=== PATIENT | female | born 1980 | race Asian ===

== ENCOUNTER 2020-06-20 10:04 | Outpatient (REF) | payer OTHER, SELFPAY ==
[2020-06-20 10:48] LABS: Glucose Urine UA NEG (NEG); Leukocyte Esterase Urine NEG (NEG); Nitrite Urine NEG (NEG); Urine Blood NEG (NEG); Urine Ketones NEG (NEG); Urine Protein NEG (NEG-TRACE)
[2020-06-20 10:49] LABS: Appearance Urine CLEAR; Color Urine YELLOW
[2020-06-20 10:58] LABS: Hematocrit 41.4 % (37-47); Hemoglobin 13.4 g/dl (12.0-16.0); Mean Corpuscular HGB Conc 32.4 g/dl (31.0-35.0); Mean Corpuscular Hemoglobin 29.1 pg (27.0-33.0); Mean Platelet Volume 10.8 fL (9.4-12.3); Platelet Count 307 X10*3/uL (160-400); Red Cell Distribution Width 12.7 % (11.0-16.0); White Blood Count 7.7 X10*3/uL (4.8-10.8)
[2020-06-20 11:20] LABS: Alanine Aminotransferase 12 U/L (0-31); Albumin Level 3.9 g/dL (3.5-5.0); Alkaline Phosphatase 70 U/L (39-117); Anion Gap 11 (12-20); Aspartate Amino Transferase 17 U/L (5-31); Bilirubin Direct < 0.2 mg/dL (0.0-0.5); Bilirubin Total 0.5 mg/dL (0.0-1.0); Blood Urea Nitrogen 12 mg/dL (9-16); Calcium 9.2 mg/dL (8.4-10.2); Carbon Dioxide 27 mmol/L (22-29); Chloride 105 mmol/L (96-108); Cholesterol 179 mg/dL; Estimated Glomerular Filt Rate > 60; Glucose Random 84 mg/dL (60-115); HDL Cholesterol 53 mg/dL; LDL Cholesterol Calculated 88 mg/dl; Potassium 4.5 mmol/L (3.3-5.1); Sodium 138 mmol/L (135-145); Total Protein 7.4 g/dL (6.5-8.0); Triglycerides 193 mg/dL
[2020-06-20 11:41] LABS: Thyroid Stimulating Hormone 0.51 uIU/mL (0.32-4.0)
[2020-06-24 16:12] LABS: Vitamin D 25-OH, D2 <4 ng/mL; Vitamin D 25-OH, D3 17 ng/mL; Vitamin D 25-OH, Total 17 ng/mL (30-100)
== END 2020-06-20 10:05 | disposition home or self-care (01) ==
LOC: HO.LAB 10:04
PROVIDERS: PCP Internal Medicine; Visit Provider Internal Medicine
DX: Z00.00 Encounter for general adult medical examination without abnormal findings (principal)
CPT/HCPCS: 36415; 80048; 80061; 80076; 81003; 82306; 84443; 85027

== ENCOUNTER 2021-07-20 09:25 | Outpatient (REF) | payer OTHER, SELFPAY ==
[2021-07-20 09:55] LABS: MANUAL DIFF FLAG NO
[2021-07-20 10:41] LABS: Basophils Absolute Auto 0.1 X10*3/uL (0.0-0.2); Basophils Percent Auto 0.6 % (0-2); Eosinophils Absolute Auto 0.2 X10*3/uL (0.0-0.4); Eosinophils Percent Auto 2.9 % (0-4); Hematocrit 41.9 % (37.0-47.0); Hemoglobin 13.8 g/dl (12.0-16.0); Imm Gran Abs Auto 0.02 X10*3/uL (0.00-0.03); Imm Gran Pct Auto 0.3 % (0.0-0.4); Lymphocytes Absolute Auto 2.1 X10*3/uL (1.2-4.9); Lymphocytes Percent Auto 27.1 % (20-40); Mean Corpuscular HGB Conc 32.9 g/dl (31.0-35.0); Mean Corpuscular Hemoglobin 29.1 pg (27.0-33.0); Mean Corpuscular Volume 88.4 fL (80.0-98.0); Mean Platelet Volume 10.7 fL (9.4-12.3); Monocytes Absolute Auto 0.4 X10*3/uL (0.1-1.2); Monocytes Percent Auto 5.2 % (2-11); Neutrophils Percent Auto 63.9 % (45-73); Platelet Count 271 X10*3/uL (160-400); Red Blood Count 4.74 X10*6/uL (4.20-5.50); Red Cell Distribution Width 12.7 % (11.0-16.0); White Blood Count 7.8 X10*3/uL (4.8-10.8)
[2021-07-20 10:54] LABS: Appearance Urine HAZY; Color Urine YELLOW; Glucose Urine UA NEG (NEG); Leukocyte Esterase Urine NEG (NEG); Nitrite Urine NEG (NEG); Specific Gravity - Urine 1.015 (1.005-1.025); Urine Blood NEG (NEG); Urine Ketones NEG (NEG); Urine Protein NEG (NEG-TRACE)
[2021-07-20 11:12] LABS: Alanine Aminotransferase 15 U/L (0-31); Albumin Level 3.9 g/dL (3.5-5.0); Alkaline Phosphatase 67 U/L (39-117); Anion Gap 9 (12-20); Aspartate Amino Transferase 18 U/L (5-31); Bilirubin Total 0.6 mg/dL (0.0-1.0); Blood Urea Nitrogen 10 mg/dL (9-16); Calcium 9.1 mg/dL (8.4-10.2); Carbon Dioxide 27 mmol/L (22-29); Chloride 106 mmol/L (96-108); Cholesterol 175 mg/dL; Estimated Glomerular Filt Rate > 60; Glucose Fasting 84 mg/dL (60-99); HDL Cholesterol 52 mg/dL; LDL Cholesterol Calculated 99 mg/dl; Potassium 4.7 mmol/L (3.3-5.1); Sodium 137 mmol/L (135-145); Total Protein 6.7 g/dL (6.5-8.0); Triglycerides 121 mg/dL
[2021-07-20 11:32] LABS: TSH reflex Free T4 0.45 uIU/mL (0.32-4.0)
[2021-07-25 15:16] LABS: Vitamin D 25-OH, D2 <4 ng/mL; Vitamin D 25-OH, D3 14 ng/mL; Vitamin D 25-OH, Total 14 ng/mL (30-100)
== END 2021-07-20 09:26 | disposition home or self-care (01) ==
LOC: HO.LAB 09:25
PROVIDERS: PCP Internal Medicine; Visit Provider Nurse Practitioner Family
DX: Z00.00 Encounter for general adult medical examination without abnormal findings (principal); M54.50 Low back pain, unspecified; R63.0 Anorexia; I10 Essential (primary) hypertension; R53.82 Chronic fatigue, unspecified; E78.00 Pure hypercholesterolemia, unspecified
CPT/HCPCS: 36415; 80053; 80061; 81003; 82306; 84443; 85025; 87086

== ENCOUNTER 2021-10-19 10:09 | Outpatient (REF) | payer OTHER, SELFPAY ==
[2021-10-20 06:20] LABS: CT PCR NOT DETECTED (Not Detect.); NG PCR NOT DETECTED (Not Detect.)
[2021-10-20 09:18] LABS: BV Int Neg Control Negative (Negative); BV Int Pos Control Positive (Positive)
[2021-10-26 00:36] LABS: HPV mRNA E6/E7 rflx Not Detected (Not Detected)
== END 2021-10-19 10:10 | disposition home or self-care (01) ==
LOC: HO.LAB 10:09
PROVIDERS: Visit Provider Advanced Practice Midwife
DX: Z12.4 Encounter for screening for malignant neoplasm of cervix (principal); Z11.3 Encounter for screening for infections with a predominantly sexual mode of transmission; Z11.51 Encounter for screening for human papillomavirus (HPV)
CPT/HCPCS: 87480; 87491; 87510; 87591; 87624; 87660; 88142

== ENCOUNTER 2022-10-25 08:28 | Outpatient (AMB) | payer OTHER, SELFPAY ==
--- NOTE | 2022-10-25 08:36 | A.OFFPC_ITS ---
Vital Signs 10/25/22 08:37 Height 5 ft Weight 103 lb 8 oz BMI 20.2 BP 110/66 Blood Pressure Location Lt brachial Position Sitting Pulse 60 Pulse Source Pulse Oximeter Pulse Oximetry (%) 100 Oxygen Delivery Method Room Air Intake Visit Reasons: Physical Exam Intake Note: Patient is here today for a physical. Complaint of rash in left hand. Strap Machine Operator Automatic Required: No Public Transit Bus Driver: Not Required per policy Accompanied by: Self / Same As Patient Allergies No Known Allergies Allergy (Verified 10/25/22 08:56) Medication List - Last Reconciled 10/25/22 by Vikash West MD norelgestromin-ethin.estradiol 150-35 mcg/24 hr (Xulane) 1 patch transdermal Q7D triamcinolone acetonide 0.025% 1 appl topical BID Tobacco use date assessed: 10/25/22 Dental Screening Dental Screen Date: 10/25/22 Did you have a dental visit in the last 12 months?: Yes Did you have a dental problem in the last 6 months where you did not have access to dental care?: No Was dental information given to patient?: Patient has dentist HPI Physical Exam HPI Details 42-year-old female presents to the office requesting an annual physical. Patient has a rash on her left hand. 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 The rash is predominantly itchy. Also complaining of low back pain due to long hours of standing. Does not exercise. Complains of generalized fatigue. [facility], [facility] Medical History (Updated 10/25/22 @ 09:00 by Vikash West MD) Asteatotic eczema Chronic fatigue Low back pain Surgical History No history of previous surgery Family History Mother Diabetes High cholesterol Hypertension Stroke Father Arthritis Son No problems noted. Sister No problems noted. Social History Housing: Apartment Alcohol intake: never Patient Tobacco Use Status: Never used Tobacco e-Cigarette/Vaping Use: Never Used Second Hand Smoke Exposure: No service: No Current occupational status: employed Cognitive needs: No Hearing needs: No Vision needs: No Female Reproductive History Menstrual Age of Menarche: 14 Questionnaire PHQ-9 Over the last 2 weeks, how often have you been bothered by any of the following problems? 1. Little interest or pleasure in doing things: not at all 2. Feeling down, depressed, or hopeless: not at all 3. Trouble falling or staying asleep, or sleeping too much: not at all 4. Feeling tired or having little energy: not at all 5. Poor appetite or overeating: not at all 6. Feeling bad about yourself - or that you are a failure or have let yourself or your family down: not at all 7. Trouble concentrating on things, such as reading the newspaper or watching television: not at all 8. Moving or speaking so slowly that other people could have noticed. Or the opposite - being so fidgety or restless that you have been moving around a lot more than usual: not at all 9. Thoughts that you would be better off or of hurting yourself in some way: not at all Total score: 0 Depression Screening Interpretation: Negative Source: Developed by Drs. David East, Debbie Epstein, Kevin Jin and colleagues, with an educational silvia from [employer]. Thrive Questionnaire Date Thrive assessed: 10/25/22 I am a: Patient What is your living situation today?: I have a steady place to live Within the past 12 months, did the food you bought not last and you didn't have the money to get more?: Never true Within the past 12 months, did you worry whether your food would run out before you got money to buy more?: Never true Do you have trouble paying for medicines?: No Do you have trouble getting transportation to medical appointments?: No Do you have trouble paying your heating and electricity bill?: No Do you have trouble taking care of your child, family member or friend?: No Do you have trouble with day-to-day activities such as bathing, preparing meals, shopping, managing finances, etc.?: No Are you currently unemployed and looking for a job?: No Are you interested in more education?: No Currently or been in a relationship where the following occur: no concerns reported AUDIT C Alcohol Use Questionnaire (AUDIT-C) 1. How often do you have a drink containing alcohol?: Never Total Score: 0 MAILE-7 AMB Questionnaire MAILE-7 Date MAILE - 7 assessed: 10/25/22 Feeling nervous, anxious, or on edge: 0 = Not at all Not being able to stop or control worryin = Not at all Worrying too much about different things: 0 = Not at all Trouble relaxin = Not at all Being so restless that it is hard to sit still: 0 = Not at all Becoming easily annoyed or irritable: 0 = Not at all Feeling afraid as if something awful might happen: 0 = Not at all Total MAILE-7 score (0-4 normal; 5-9 mild; 10-14 moderate; 15-21 severe): 0 Source: Developed by Drs. David East, Debbie Epstein, Kevin Jin and colleagues, with an educational silvia from [employer]. Physical exam (Primary Care) Vital Signs: Last Vital Signs Pulse 60 10/25/22 08:37 BP 110/66 10/25/22 08:37 Pulse Ox 100 10/25/22 08:37 Oxygen Delivery Method Room Air 10/25/22 08:37 Care Plan Goal for BP management: Blood pressure is in range. BMI result Body Mass Index 20.2 Tobacco/Smoking Status: Tobacco use Status Tobacco use date assessed 10/25/22 10/25/22 08:42 Patient Tobacco Use Status Never used Tobacco 10/25/22 08:42 e-Cigarette/Vaping Use Never Used 10/25/22 08:42 PHQ-9: PHQ-9 Score PHQ-9: Total score 0 10/25/22 08:42 Depression Screening Interpretation: Negative Thrive Assessment: Date of Thrive Assessment Date Thrive assessed 10/25/22 10/25/22 08:42 Currently or been in a relationship where the following occur: no concerns reported Const General: cooperative, healthy appearing and comfortable HENMT Head: Yes normal to inspection and Yes atraumatic Eyes General: appearance normal, both eyes and all related structures Neck Neck: Yes normal visual inspection and Yes full ROM Chest Chest palpation & inspection: normal inspection of the chest Resp Effort & Inspection: normal respiratory effort Auscultation: clear to auscultation bilaterally Cardio Jugular venous distension: no JVD Palpation: normal PMI Rate: regular rate Heart sounds: S1 normal heart sound present and S2 normal heart sound present GI Palpation (GI): Soft to palpation and No hepatosplenomegaly present Extrem General: Yes normal to inspection and Yes full ROM Assessment and Plan Assessment & Plan (1) Low back pain: Code(s): M54.50 - Low back pain, unspecified Plan: Physical therapy has been ordered. Patient was encouraged to do stretching exercises and exercise regularly. (2) Annual physical exam: Code(s): Z00.00 - Encounter for general adult medical examination without abnormal findings Plan: Blood work has been ordered. Screening mammogram has been ordered. Client Care Consultant exam for routine cervical cancer screening ordered. (3) Asteatotic eczema: Code(s): L30.8 - Other specified dermatitis Plan: Steroid cream has been ordered. Orders: Orders Basic Metabolic Panel Today M54.50 - Low back pain, unspecified, Z00.00 - Encounter for general adult medical examination without abnormal findings Lipid Panel Today M54.50 - Low back pain, unspecified, Z00.00 - Encounter for general adult medical examination without abnormal findings Liver Panel Today M54.50 - Low back pain, unspecified, Z00.00 - Encounter for general adult medical examination without abnormal findings Thyroid Stimulating Hormone Today M54.50 - Low back pain, unspecified, Z00.00 - Encounter for general adult medical examination without abnormal findings Complete Blood Count no Diff Today M54.50 - Low back pain, unspecified, Z00.00 - Encounter for general adult medical examination without abnormal findings Erythrocyte Sedimentation Rate Today M54.50 - Low back pain, unspecified, Z00.00 - Encounter for general adult medical examination without abnormal findings UA and rflx microscopic Today M54.50 - Low back pain, unspecified, Z00.00 - Encounter for general adult medical examination without abnormal findings MM screening mammo BI Today Z12.31 - Encounter for screening mammogram for malignant neoplasm of breast PT Evaluation and Treatment Today M54.50 - Low back pain, unspecified Medications: New triamcinolone acetonide 0.025% 1 appl topical BID 15 grams 0RF Refilled norelgestromin-ethin.estradiol 150-35 mcg/24 hr (Xulane) apply once weekly for 3 weeks of a 4-week cycle 1 patch transdermal Q7D 3 ea 3RF Discontinued naproxen Discontinued Reason: Doctor's Order 500 mg PO BID PRN 20 tabs 0RF pain Coding Level of Care Code Est Pt Prev Care 40-64y([address]) Diagnoses Low back pain M54.50 Annual physical exam Z00.00 Asteatotic eczema L30.8
[2022-10-25 08:37] VITALS: BP 110/66; PULSE 60; O2SAT 100; BMI 20.2
== END 2022-10-25 10:27 | disposition home or self-care (01) ==
PROVIDERS: PCP Internal Medicine; Visit Provider Internal Medicine
DX: M54.50 Low back pain, unspecified (principal); Z00.00 Encounter for general adult medical examination without abnormal findings; L30.8 Other specified dermatitis
CPT/HCPCS: 99396

== ENCOUNTER 2022-10-25 08:57 | Outpatient (REF) | payer OTHER, SELFPAY ==
[2022-10-25 10:05] LABS: Hematocrit 42.2 % (37.0-47.0); Hemoglobin 13.9 g/dl (12.0-16.0); Mean Corpuscular HGB Conc 32.9 g/dl (31.0-35.0); Mean Corpuscular Hemoglobin 29.1 pg (27.0-33.0); Mean Corpuscular Volume 88.3 fL (80.0-98.0); Mean Platelet Volume 10.9 fL (9.4-12.3); Platelet Count 291 X10*3/uL (160-400); Red Blood Count 4.78 X10*6/uL (4.20-5.50); White Blood Count 8.8 X10*3/uL (4.8-10.8)
[2022-10-25 10:40] LABS: Appearance Urine Clear; Color Urine Yellow; Glucose Urine UA Negative (Negative); Leukocyte Esterase Urine Negative (Negative); Nitrite Urine Negative (Negative); PH 5.5 (5.0-9.0); Specific Gravity - Urine 1.025 (1.005-1.025); Urine Blood Negative (Negative); Urine Ketones Negative (Negative); Urine Protein Negative (Neg-Trace)
[2022-10-25 10:42] LABS: Alanine Aminotransferase 11 U/L (0-31); Albumin Level 3.9 g/dL (3.5-5.0); Alkaline Phosphatase 71 U/L (39-117); Anion Gap 13 (12-20); Aspartate Amino Transferase 17 U/L (5-31); Bilirubin Direct 0.2 mg/dL (0.0-0.5); Bilirubin Total 0.8 mg/dL (0.0-1.0); Blood Urea Nitrogen 18 mg/dL (9-16); Calcium 9.1 mg/dL (8.4-10.2); Carbon Dioxide 25 mmol/L (22-29); Chloride 106 mmol/L (96-108); Cholesterol 203 mg/dL (<200); Estimated Glomerular Filt Rate > 60; Glucose Random 88 mg/dL (60-115); HDL Cholesterol 52 mg/dL (>40); LDL Cholesterol Calculated 128 mg/dL (<100); Potassium 4.1 mmol/L (3.3-5.1); Sodium 140 mmol/L (135-145); Total Protein 7.7 g/dL (6.5-8.0); Triglycerides 119 mg/dL (<150)
[2022-10-25 10:55] LABS: Erythrocyte Sedimentation Rate 16 MM/HR (0-20)
[2022-10-25 11:02] LABS: Thyroid Stimulating Hormone 0.84 uIU/mL (0.32-4.0)
[2022-10-26 05:28] LABS: CT PCR NOT DETECTED (Not Detect.); NG PCR NOT DETECTED (Not Detect.)
[2022-10-26 15:42] LABS: BV Int Neg Control Negative (Negative); BV Int Pos Control Positive (Positive)
== END 2022-10-25 08:58 | disposition home or self-care (01) ==
LOC: HO.LAB 08:57
PROVIDERS: Advanced Practice Midwife; PCP Internal Medicine; Visit Provider Internal Medicine
DX: Z01.419 Encounter for gynecological examination (general) (routine) without abnormal findings (principal); M54.50 Low back pain, unspecified; N89.8 Other specified noninflammatory disorders of vagina; Z78.9 Other specified health status; Z20.2 Contact with and (suspected) exposure to infections with a predominantly sexual mode of transmission; Z98.891 History of uterine scar from previous surgery; Z79.899 Other long term (current) drug therapy
CPT/HCPCS: 0353U; 36415; 80048; 80061; 80076; 81003; 84443; 85027; 85652; 87480; 87510; 87660

== ENCOUNTER 2022-10-25 09:21 | Outpatient (AMB) | payer OTHER, SELFPAY ==
--- NOTE | 2022-10-25 09:29 | MHC.OFFVIS ---
Intake Vital Signs 10/25/22 09:30 Height 5 ft Weight 103 lb BMI 20.1 BP 100/60 Intake Visit Reasons: Annual Intake Note: Having a lot of discharge and is itchy and odor Medical Delivery Driver Required: No Information Interpreted: non-clinical & clinical Cylinder Block Mechanic: Cylinder Block Mechanic Present (M[place]ory) Allergies No Known Allergies Allergy (Verified 10/25/22 09:53) Medication List - Last Reconciled 10/25/22 by Mally Buchanan CNM norelgestromin-ethin.estradiol 150-35 mcg/24 hr (Xulane) 1 patch transdermal Q7D triamcinolone acetonide 0.025% 1 appl topical BID Is last menstrual period known: No (she doesn't remember but she says she gets it monthly) Post menopausal: No HPI Annual HPI Details 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 She has been noticing of vaginal discharge that has a little bit of an odor often on for the last couple of months. She stopped the patches a couple of months ago because she is not sexually active at the moment she does want the patch refill to be ordered so if she does become sexually active again she can restart it I did review with her when to restart it she gets 4 day long periods and she was starting it at the end of her. When it stopped I reminded her to use it as close to the beginning of her menses as possible in her case 4 days is okay but if a she got longer periods it would be import returned to start it much closer to the beginning of the menses to be protected sooner rationale discussed. She just got fasting blood work done for her primary care provider to check for diabetes etc.. She says that her primary also ordered her mammogram but has not been set up yet. She walks for exercise everywhere she does not have any other concerns she does not know if she ever had an abnormal Pap smear she had her baby by in [place] 12 years ago who is 7 lb and her 1st Pap that she is aware of was last year it was negative. [facility] Medical History Asteatotic eczema Chronic fatigue Low back pain Surgical History No history of previous surgery Family History Mother Diabetes High cholesterol Hypertension Stroke Father Arthritis Son No problems noted. Sister No problems noted. Social History Housing: Apartment Alcohol intake: never Patient Tobacco Use Status: Never used Tobacco e-Cigarette/Vaping Use: Never Used Second Hand Smoke Exposure: No service: No Current occupational status: employed Cognitive needs: No Hearing needs: No Vision needs: No Female Reproductive History Menstrual Age of Menarche: 14 Duration of menses: 3-5 days control method: patch Total pregnancies: 1 Full term: 1 Number of Living Children: 1 Date of last pap smear: 10/20/21 (negative) Physical Exam Vital Signs: Last Vital Signs BP 100/60 10/25/22 09:30 BMI result Body Mass Index 20.1 Const General: healthy appearing, comfortable, no acute distress, well developed and alert Nutritional Appearance: average body habitus Orientation/consciousness: patient oriented x3 Limitations: no limitations HEENT Head: Yes normocephalic Neck Neck: Yes normal visual inspection Chest Chest palpation & inspection: normal inspection of the chest Breast/axilla inspection: normal inspection of the breasts and normal inspection of the axillae Breast/axilla palpation: normal palpation of the breasts and normal palpation of the axillae Resp Effort & Inspection: normal respiratory effort GI Inspection: Yes normal to inspection, No Abdominal wall edema and No distended Palpation (GI): Soft to palpation and nontender General: Yes bladder normal to palpation External Female Exam: normal external appearance and normal appearance of the urethra Speculum Exam - Vagina: normal appearance of the vagina, normal palpation and normal vaginal discharge Speculum Exam - Cervix: normal appearance of the cervix, normal palpation and nontender Bimanual exam- vagina & uterus: normal bimanual exam, normal palpation, uterine size normal, bladder normal to palpation, consistency normal, normal palpation, uterine mobility normal, uterine shape normal, No Cervical tenderness present, non-tender and no cervical motion tenderness Bimanual Exam- Adnexa, other: normal adnexae, no masses, normal and No adnexal tenderness Neuro General: patient oriented x3 Assessment & Plan Assessment & Plan (1) Uses hormonal contraceptive patch as primary control method: Code(s): Z78.9 - Other specified health status (2) Cervical cancer screening: Comment: 10/19/2021 Pap is negative with negative HPV. 10/25/2022 Pap done secondary to history of infrequent screening... Code(s): Z12.4 - Encounter for screening for malignant neoplasm of cervix (3) control counseling: Code(s): Z30.09 - Encounter for other general counseling and advice on contraception (4) Screen for sexually transmitted diseases: Code(s): Z11.3 - Encounter for screening for infections with a predominantly sexual mode of transmission (5) History of section, low transverse: Code(s): Z98.891 - History of uterine scar from previous surgery (6) Well woman exam with routine gynecological exam: Code(s): Z01.419 - Encounter for gynecological examination (general) (routine) without abnormal findings Plan 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 She has been noticing of vaginal discharge that has a little bit of an odor often on for the last couple of months. She stopped the patches a couple of months ago because she is not sexually active at the moment she does want the patch refill to be ordered so if she does become sexually active again she can restart it I did review with her when to restart it she gets 4 day long periods and she was starting it at the end of her. When it stopped I reminded her to use it as close to the beginning of her menses as possible in her case 4 days is okay but if a she got longer periods it would be import returned to start it much closer to the beginning of the menses to be protected sooner rationale discussed. She just got fasting blood work done for her primary care provider to check for diabetes etc.. She says that her primary also ordered her mammogram but has not been set up yet. She walks for exercise everywhere she does not have any other concerns she does not know if she ever had an abnormal Pap smear she had her baby by in [place] 12 years ago who is 7 lb and her 1st Pap that she is aware of was last year it was negative. Testing for gonorrhea chlamydia trichomoniasis Gardnerella and Ingris was done will await the results if she does not hear anything back by Saturday she may call for the results. Pap was repeated because she is not aware of testing before last year's Pap. I will reorder her control patch for her and gave her fresh instructions on ensuring start of patch early enough in cycle. RTC 1 year Also instructed on Ara's patient has good tone.. Medications: Refilled norelgestromin-ethin.estradiol 150-35 mcg/24 hr (Xulane) apply once weekly for 3 weeks of a 4-week cycle 1 patch transdermal Q7D 9 ea 4RF Coding Level of Care Code Est Pt Prev Care 18-39y(02364) Diagnoses Uses hormonal contraceptive patch as primary control method Z78.9 Cervical cancer screening Z12.4 control counseling Z30.09 Screen for sexually transmitted diseases Z11.3 History of section, low transverse Z98.891 Well woman exam with routine gynecological exam Z01.419
[2022-10-25 09:30] VITALS: BP 100/60; BMI 20.1
== END 2022-10-25 11:20 | disposition home or self-care (01) ==
LOC: HO.HWS 09:21
PROVIDERS: PCP Internal Medicine; Visit Provider Advanced Practice Midwife
DX: Z01.419 Encounter for gynecological examination (general) (routine) without abnormal findings (principal); Z78.9 Other specified health status; Z12.4 Encounter for screening for malignant neoplasm of cervix; Z30.09 Encounter for other general counseling and advice on contraception; Z11.3 Encounter for screening for infections with a predominantly sexual mode of transmission; Z98.891 History of uterine scar from previous surgery
CPT/HCPCS: 99396

== ENCOUNTER 2022-10-25 10:53 | Outpatient (REF) | payer OTHER, SELFPAY ==
[2022-10-30 23:08] LABS: HPV mRNA E6/E7 rflx Not Detected (Not Detected)
== END 2022-10-25 10:54 | disposition home or self-care (01) ==
LOC: HO.LNP 10:53
PROVIDERS: Visit Provider Advanced Practice Midwife
DX: Z01.419 Encounter for gynecological examination (general) (routine) without abnormal findings (principal)
CPT/HCPCS: 87624; 88142

== ENCOUNTER → 2022-11-09 08:30 | Outpatient (BNV) | payer OTHER, SELFPAY | PROVIDERS: PCP Internal Medicine; Visit Provider Radiology Diagnostic Radiology | DX: Z12.31 Encounter for screening mammogram for malignant neoplasm of breast (principal) | CPT/HCPCS: 77063; 77067 ==

== ENCOUNTER 2022-11-09 08:40 | Outpatient (REF) | payer OTHER, SELFPAY ==
--- NOTE | ~2022-11-09 | MM_ITS ---
EXAMINATION: MM SCREENING DIGITAL BREAST TOMOSYNTHESIS, BILATERAL CLINICAL INFORMATION: Screening. Asymptomatic. COMPARISON: Mammography: This is a baseline study. TECHNIQUE: Digital breast tomosynthesis is performed in both the craniocaudal and mediolateral oblique views along with computer-aided detection (CAD). Synthesized 2D images are generated from the tomosynthesis. FINDINGS: The breasts are heterogeneously dense, which may obscure small masses (ACR BI-RADS breast composition Category c). There are no significant masses, abnormal calcifications, or other abnormalities. MM/MM tomosynthesis screening BI IMPRESSION: No mammographic evidence of malignancy. ASSESSMENT: BI-RADS BI-RADS 1 - Negative RECOMMENDATION: Routine annual mammography screening. 1 year F/U This examination should not preclude the clinical evaluation of a suspicious palpable abnormality. This patient's information was entered into a reminder system with a target due date for their next mammogram.
== END 2022-11-09 08:41 | disposition home or self-care (01) ==
LOC: HO.MAMMO 08:40
PROVIDERS: PCP Internal Medicine; Visit Provider Internal Medicine
DX: Z12.31 Encounter for screening mammogram for malignant neoplasm of breast (principal)
CPT/HCPCS: 77063; 77067

== ENCOUNTER 2023-10-31 08:27 | Outpatient (AMB) | payer OTHER, SELFPAY ==
[2023-10-31 08:41] VITALS: BP 120/60; PULSE 56; O2SAT 99; BMI 21.5
--- NOTE | 2023-10-31 08:41 | A.OFFPC_ITS ---
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 Aide Required: No Accompanied by: Self / Same As Patient Allergies No Known Allergies Allergy (Verified 10/31/23 09:04) Medication List - Last Reconciled 10/31/23 by Vikash West MD norelgestromin-ethin.estradiol 150-35 mcg/24 hr (Xulane) 1 patch transdermal Q7D triamcinolone acetonide 0.025% 1 appl topical BID Tobacco use date assessed: 10/31/23 Dental Screening Dental Screen Date: 10/31/23 Did you have a dental visit in the last 12 months?: Yes Did you have a dental problem in the last 6 months where you did not have access to dental care?: No Was dental information given to patient?: Patient has dentist HPI Annual Exam HPI Details 43-year-old female presents to the [facility] requesting an annual physical. [facility] Medical History Asteatotic eczema Low back pain Chronic fatigue Surgical History No history of previous surgery Family History Mother Diabetes High cholesterol Hypertension Stroke Father Arthritis Son No problems noted. Sister No problems noted. Social History Housing: Apartment Alcohol intake: never Patient Tobacco Use Status: Never used Tobacco e-Cigarette/Vaping Use: Never Used Second Hand Smoke Exposure: No service: No Current occupational status: employed Cognitive needs: No Hearing needs: No Vision needs: No Female Reproductive History Menstrual Age of Menarche: 14 Questionnaire PHQ-9 Over the last 2 weeks, how often have you been bothered by any of the following problems? 1. Little interest or pleasure in doing things: not at all 2. Feeling down, depressed, or hopeless: not at all 3. Trouble falling or staying asleep, or sleeping too much: not at all 4. Feeling tired or having little energy: several days 5. Poor appetite or overeating: not at all 6. Feeling bad about yourself - or that you are a failure or have let yourself or your family down: not at all 7. Trouble concentrating on things, such as reading the newspaper or watching television: not at all 8. Moving or speaking so slowly that other people could have noticed. Or the opposite - being so fidgety or restless that you have been moving around a lot more than usual: not at all 9. Thoughts that you would be better off or of hurting yourself in some way: not at all Total score: 1 Depression Screening Interpretation: Negative Depression Screening Done: Yes Source: Developed by Drs. David East, Debbie Epstein, Kevin Jin and colleagues, with an educational silvia from [employer]. Thrive Questionnaire Date Thrive assessed: 10/31/23 I am a: Patient What is your living situation today?: I choose not to answer this question Within the past 12 months, did the food you bought not last and you didn't have the money to get more?: I choose not to answer this question Within the past 12 months, did you worry whether your food would run out before you got money to buy more?: I choose not to answer this question Do you have trouble paying for medicines?: I choose not to answer this question Do you have trouble getting transportation to medical appointments?: No Do you have trouble paying your heating and electricity bill?: No Do you have trouble taking care of your child, family member or friend?: No Do you have trouble with day-to-day activities such as bathing, preparing meals, shopping, managing finances, etc.?: No Are you currently unemployed and looking for a job?: No Are you interested in more education?: No Please select the resources that you would like help with: None Currently or been in a relationship where the following occur: I choose not to answer THRIVE Score: 0 AUDIT C Alcohol Use Questionnaire (AUDIT-C) 1. How often do you have a drink containing alcohol?: Never Total Score: 0 MAILE-7 AMB Questionnaire MAILE-7 Date MIALE - 7 assessed: 10/31/23 Feeling nervous, anxious, or on edge: 0 = Not at all Not being able to stop or control worryin = Not at all Worrying too much about different things: 0 = Not at all Trouble relaxin = Not at all Being so restless that it is hard to sit still: 0 = Not at all Becoming easily annoyed or irritable: 0 = Not at all Feeling afraid as if something awful might happen: 0 = Not at all Total MAILE-7 score (0-4 normal; 5-9 mild; 10-14 moderate; 15-21 severe): 0 Source: Developed by Drs. David East, Debbie Epstein, Kevin Jin and colleagues, with an educational silvia from [employer]. Physical exam (Primary Care) Vital Signs: Last Vital Signs Pulse 56 10/31/23 08:41 BP 120/60 10/31/23 08:41 Pulse Ox 99 10/31/23 08:41 Oxygen Delivery Method Room Air 10/31/23 08:41 Care Plan Goal for BP management: Blood pressure is in range. BMI result Body Mass Index 21.5 Tobacco/Smoking Status: Tobacco use Status Tobacco use date assessed 10/31/23 10/31/23 08:46 Patient Tobacco Use Status Never used Tobacco 10/31/23 08:46 e-Cigarette/Vaping Use Never Used 10/31/23 08:46 PHQ-9: PHQ-9 Score PHQ-9: Total score 1 10/31/23 08:46 Depression Screening Interpretation: Negative Thrive Assessment: Date of Thrive Assessment Date Thrive assessed 10/31/23 10/31/23 08:46 Currently or been in a relationship where the following occur: I choose not to answer Const General: cooperative and healthy appearing Nutritional Appearance: well nourished Orientation/consciousness: patient oriented x3 Limitations: no limitations HENMT Head: Yes normal to inspection Eyes General: appearance normal, both eyes and all related structures Neck Neck: Yes normal visual inspection Chest Chest palpation & inspection: normal palpation of entire chest wall Resp Effort & Inspection: normal respiratory effort Neuro General: patient oriented x3 Assessment and Plan Assessment & Plan (1) Annual physical exam: Code(s): Z00.00 - Encounter for general adult medical examination without abnormal findings Plan: Patient is at baseline state of health. Routine blood work for screening has been ordered. Mammogram has been scheduled. Steroid cream for the dryness in her hands has been ordered Orders: Orders Lipid Panel Today L30.8 - Other specified dermatitis Liver Panel Today L30.8 - Other specified dermatitis Thyroid Stimulating Hormone Today L30.8 - Other specified dermatitis UA and rflx microscopic Today L30.8 - Other specified dermatitis Complete Blood Count no Diff Today L30.8 - Other specified dermatitis Medications: Refilled triamcinolone acetonide 0.025% 1 appl topical BID 15 grams 0RF Discontinued metronidazole Discontinued Reason: Patient Completed Course 500 mg PO BID 14 tabs 0RF 7 days Coding Level of Care Code Est Pt Prev Care 40-64y(61263) Diagnoses Annual physical exam Z00.00
== END 2023-10-31 10:07 | disposition home or self-care (01) ==
PROVIDERS: PCP Internal Medicine; Visit Provider Internal Medicine
DX: Z00.00 Encounter for general adult medical examination without abnormal findings (principal)
CPT/HCPCS: 99396

== ENCOUNTER 2023-10-31 09:12 | Outpatient (REF) | payer OTHER, SELFPAY ==
[2023-10-31 10:09] LABS: Hematocrit 38.6 % (37.0-47.0); Hemoglobin 12.6 g/dl (12.0-16.0); Mean Corpuscular HGB Conc 32.6 g/dl (31.0-35.0); Mean Corpuscular Volume 88.7 fL (80.0-98.0); Mean Platelet Volume 10.5 fL (9.4-12.3); Platelet Count 327 X10*3/uL (160-400); Red Blood Count 4.35 X10*6/uL (4.20-5.50); Red Cell Distribution Width 13.5 % (11.0-16.0); White Blood Count 8.5 X10*3/uL (4.8-10.8)
[2023-10-31 10:17] LABS: Appearance Urine Clear; Color Urine Yellow; Glucose Urine UA Negative (Negative); Leukocyte Esterase Urine Moderate (2+) (Negative); Nitrite Urine Negative (Negative); PH 8.5 (5.0-9.0); Specific Gravity - Urine 1.015 (1.005-1.025); UMIC TRIGGER UA YES; Urine Blood Moderate (2+) (Negative); Urine Ketones Negative (Negative); Urine Protein Negative (Neg-Trace)
[2023-10-31 10:38] LABS: Bacteria Urine Trace (None Seen); Hyaline Casts Urine 0-2 /LPF (0-2); WBC Urine 0-5 /HPF (0-5)
[2023-10-31 10:59] LABS: Alanine Aminotransferase 14 U/L (0-31); Albumin Level 3.8 g/dL (3.5-5.0); Alkaline Phosphatase 77 U/L (39-117); Aspartate Amino Transferase 15 U/L (5-31); Bilirubin Direct 0.2 mg/dL (0.0-0.5); Bilirubin Total 0.6 mg/dL (0.0-1.0); Cholesterol 179 mg/dL (<200); HDL Cholesterol 41 mg/dL (>40); LDL Cholesterol Calculated 116 mg/dL (<100); Total Protein 7.2 g/dL (6.5-8.0); Triglycerides 114 mg/dL (<150)
[2023-10-31 11:03] LABS: Thyroid Stimulating Hormone 0.45 uIU/mL (0.32-4.0)
== END 2023-10-31 09:13 | disposition home or self-care (01) ==
LOC: HO.LAB 09:12
PROVIDERS: PCP Internal Medicine; Visit Provider Internal Medicine
DX: L30.8 Other specified dermatitis (principal)
CPT/HCPCS: 36415; 80061; 80076; 81001; 84443; 85027

== ENCOUNTER 2023-11-15 08:42 | Outpatient (REF) | payer OTHER, SELFPAY ==
--- NOTE | ~2023-11-15 | MM_ITS ---
EXAMINATION: MM SCREENING DIGITAL BREAST TOMOSYNTHESIS, BILATERAL CLINICAL INFORMATION: Screening. Asymptomatic. COMPARISON: Mammography: Comparison is made with available priors TECHNIQUE: Digital breast mammography with tomosynthesis is performed in both the craniocaudal and mediolateral oblique views along with computer-aided detection (CAD). FINDINGS: The breasts are heterogeneously dense, which may obscure small masses (ACR BI-RADS breast composition Category c). Right: Asymmetry superior breast posterior depth on MLO view could represent just change in positioning and tissue overlap. Asymmetry lateral breast posterior depth on CC view. No suspicious calcifications or other abnormal findings. Left: There are no significant masses, abnormal calcifications, or other abnormalities. MM/MM tomosynthesis screening BI IMPRESSION: Left: No mammographic evidence of malignancy. Right: Asymmetries. Additional imaging and ultrasound recommended at this time. ASSESSMENT: BI-RADS BI-RADS 0 - Incomplete: Needs additional Imaging. RECOMMENDATION: 1. Additional views of the right breast 2. Targeted ultrasound if warranted after review of the additional views. 3. Radiology department staff will contact the patient for additional imaging. Additional Imaging required This examination should not preclude the clinical evaluation of a suspicious palpable abnormality. This patient's information was entered into a reminder system with a target due date for their next mammogram. Electronically signed by: Amena Brennan DO 11/28/2023 08:07 PM EDT
== END 2023-11-15 08:43 | disposition home or self-care (01) ==
LOC: HO.MAMMO 08:42
PROVIDERS: PCP Internal Medicine; Visit Provider Internal Medicine
DX: Z12.31 Encounter for screening mammogram for malignant neoplasm of breast (principal)
CPT/HCPCS: 77063; 77067

== ENCOUNTER → 2023-11-15 09:00 | Outpatient (BNV) | payer OTHER, SELFPAY | PROVIDERS: PCP Internal Medicine; Visit Provider Internal Medicine | DX: Z12.31 Encounter for screening mammogram for malignant neoplasm of breast (principal) | CPT/HCPCS: 77063; 77067 ==

== ENCOUNTER 2023-12-09 08:27 | Outpatient (REF) | payer OTHER, SELFPAY ==
--- NOTE | ~2023-12-09 | MM_ITS ---
EXAMINATION: MM DIAGNOSTIC DIGITAL BREAST TOMOSYNTHESIS, RIGHT CLINICAL INFORMATION: Diagnostic: Evaluate one view asymmetry seen superior breast posterior depth on MLO view . Also evaluate one view asymmetric density lateral posterior right breast on CC view only. COMPARISON: Mammography: 11/15/2023, 11/09/2022. TECHNIQUE: Digital breast tomosynthesis is performed in the following views: Spot compression 3-D right CC and MLO views obtained. Computer-aided diagnosis was used for this study. FINDINGS: The breasts are heterogeneously dense, which may obscure small masses (ACR BI-RADS breast composition Category c). Spot compression views demonstrate no persistent mass, asymmetry, or other abnormality involving either site on the MLO view 4 CC view right breast. Findings are consistent with normal breast tissue on the MLO spot view, and superimposition artifact on the CC spot view. There are no persistent findings suspicious for malignancy. MM/MM tomosynthesis added views R IMPRESSION: There are no persistent findings suspicious for malignancy. Recommend the patient resume routine annual screening. ASSESSMENT: BI-RADS BI-RADS 1 - Negative RECOMMENDATION: 1 year F/U Results were provided to the patient at time of visit by the technologist. This patient's information was entered into a reminder system with a target due date for their next mammogram. Electronically signed by: Lauro Lentz MD 12/09/2023 01:33 PM EDT
== END 2023-12-09 08:28 | disposition home or self-care (01) ==
LOC: HO.MAMMO 08:27
PROVIDERS: PCP Internal Medicine; Visit Provider Internal Medicine
DX: N64.89 Other specified disorders of breast (principal)
CPT/HCPCS: 77061; 77065

== ENCOUNTER → 2023-12-09 08:30 | Outpatient (BNV) | payer OTHER, SELFPAY | PROVIDERS: PCP Internal Medicine; Visit Provider Radiology Diagnostic Radiology | DX: R92.331 Mammographic heterogeneous density, right breast (principal) | CPT/HCPCS: 77061; 77065 ==

== ENCOUNTER 2023-12-25 09:28 | Outpatient (REF) | payer MEDICAID, SELFPAY ==
[2023-12-26 11:24] LABS: Bacterial Vaginosis PCR NEGATIVE (Negative); Candida Group PCR NOT DETECTED (Not Detect); Candida glab krusei PCR NOT DETECTED (Not Detect); Trichomonas vaginalis PCR NOT DETECTED (Not Detect)
[2023-12-26 11:53] LABS: CT PCR NOT DETECTED (Not Detect.); NG PCR NOT DETECTED (Not Detect.)
== END 2023-12-25 09:29 | disposition home or self-care (01) ==
LOC: HO.LAB 09:28
PROVIDERS: PCP Internal Medicine; Visit Provider Advanced Practice Midwife
DX: Z01.419 Encounter for gynecological examination (general) (routine) without abnormal findings (principal); N89.8 Other specified noninflammatory disorders of vagina; Z78.9 Other specified health status; Z11.3 Encounter for screening for infections with a predominantly sexual mode of transmission
CPT/HCPCS: 0352U; 87491; 87591; 99396

== ENCOUNTER 2023-12-25 09:28 | Outpatient (AMB) | payer MEDICAID, SELFPAY ==
[2023-12-25 09:30] VITALS: BP 110/62; BMI 20.9
--- NOTE | 2023-12-25 09:30 | A.OFFVIS_ITS ---
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 Services: Family Development Specialist Present Information Interpreted: clinical only Placement Secretary: Placement Secretary Present Allergies No Known Allergies Allergy (Verified 12/25/23 09:35) Medication List - Last Reconciled 12/25/23 by Mally Buchanan CNM norelgestromin-ethin.estradiol 150-35 mcg/24 hr (Xulane) 1 patch transdermal Q7D triamcinolone acetonide 0.025% 1 appl topical BID Is last menstrual period known: Yes Last menstrual period: 12/18/23 HPI HPI 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 [facility] Medical History Asteatotic eczema Low back pain Chronic fatigue Surgical History (Updated 12/25/23 @ 09:39 by Nixon Fournier CMA) S/P No history of previous surgery Family History Mother Diabetes High cholesterol Hypertension Stroke Father Arthritis Son No problems noted. Sister No problems noted. Social History Housing: Apartment Alcohol intake: never Patient Tobacco Use Status: Never used Tobacco e-Cigarette/Vaping Use: Never Used Second Hand Smoke Exposure: No service: No Current occupational status: employed Cognitive needs: No Hearing needs: No Vision needs: No Female Reproductive History Menstrual Age of Menarche: 14 Duration of menses: 3-5 days Date of last menstrual period: 12/18/23 control method: patch Total pregnancies: 1 Full term: 1 Date of last pap smear: 10/26/22 (negative,) History of abnormal pap smear: No Date of Mammogram: 12/09/23 (negative) Physical Exam Vital Signs: Last Vital Signs BP 110/62 12/25/23 09:30 BMI result Body Mass Index 20.9 Const General: healthy appearing, comfortable, no acute distress, well developed and alert Nutritional Appearance: average body habitus Orientation/consciousness: patient oriented x3 Limitations: no limitations HEENT Head: Yes normocephalic Neck Neck: Yes normal visual inspection Chest Chest palpation & inspection: normal inspection of the chest Breast/axilla inspection: normal inspection of the breasts and normal inspection of the axillae Breast/axilla palpation: normal palpation of the breasts and normal palpation of the axillae Resp Effort & Inspection: normal respiratory effort GI Inspection: Yes normal to inspection, No Abdominal wall edema and No distended Palpation (GI): Soft to palpation and nontender Other: Normal external exam vagina pink, moist healthy appearing very normal appearing healthy appearing whitish clear mucus cervix multiparous pink smooth mobile nontender uterus small retroverted mobile nontender adnexa nontender not enlarged good tone with Kegel. General: Yes bladder normal to palpation External Female Exam: normal external appearance and normal appearance of the urethra Speculum Exam - Vagina: normal appearance of the vagina, normal palpation and normal vaginal discharge Speculum Exam - Cervix: normal appearance of the cervix, normal palpation and nontender Bimanual exam- vagina & uterus: normal bimanual exam, normal palpation, uterine size normal, bladder normal to palpation, consistency normal, normal palpation, uterine mobility normal, uterine shape normal, No Cervical tenderness present, non-tender and no cervical motion tenderness Bimanual Exam- Adnexa, other: normal adnexae, no masses, normal and No adnexal tenderness Neuro General: patient oriented x3 Assessment & Plan Assessment & Plan (1) Well woman exam with routine gynecological exam: Code(s): Z01.419 - Encounter for gynecological examination (general) (routine) without abnormal findings Category: Medical (2) Screen for sexually transmitted diseases: Code(s): Z11.3 - Encounter for screening for infections with a predominantly sexual mode of transmission Category: Medical (3) Uses hormonal contraceptive patch as primary control method: Code(s): Z78.9 - Other specified health status Category: Social Hx (4) Cervical cancer screening: Comment: 10/19/2021 Pap is negative with negative HPV. 10/25/2022 Pap done secondary to history of infrequent screening= neg w neg hpv. Code(s): Z12.4 - Encounter for screening for malignant neoplasm of cervix Category: Medical Plan -----Discussed in this visit the following: healthy balanced diet, regular and consistent exercise, getting recommended health screens, doing the best she can for her particular health concerns, kegel exercises, pap smear screening and followup recommendations, mammography screening and SBE, normal changes in cycles in her life stage--- . Reviewed danger signs of using the patch risk of from both embolic events. She took a trip to [facility] in October that took 24 hours a traveling [place] and 5 hours fine totaling [address] in a plane and she did well. She works hard in the restaurant during the day her son is at [employer] and doing well planning a career in healthcare plans to be a RESOLUTION REP and then go to be an RN after that at [employer]. No particular worries about STDs eyes and declined blood work prescription sent for another year of the patch. Medications: Refilled norelgestromin-ethin.estradiol 150-35 mcg/24 hr (Xulane) apply once weekly for 3 weeks of a 4-week cycle 1 patch transdermal Q7D 9 ea 4RF Coding Level of Care Code Est Pt Prev Care 40-64y(83268) Diagnoses Well woman exam with routine gynecological exam Z01.419 Screen for sexually transmitted diseases Z11.3 Uses hormonal contraceptive patch as primary control method Z78.9 Cervical cancer screening Z12.4
== END 2023-12-25 10:29 | disposition home or self-care (01) ==
LOC: HO.HWSM 09:28
PROVIDERS: PCP Internal Medicine; Visit Provider Advanced Practice Midwife
DX: Z01.419 Encounter for gynecological examination (general) (routine) without abnormal findings (principal); Z11.3 Encounter for screening for infections with a predominantly sexual mode of transmission; Z78.9 Other specified health status; Z12.4 Encounter for screening for malignant neoplasm of cervix
CPT/HCPCS: 99396

== ENCOUNTER 2024-06-19 09:16 | Outpatient (AMB) | payer OTHER, SELFPAY ==
--- NOTE | 2024-06-19 09:20 | MHC.PC.OV ---
Vital Signs 06/19/24 09:21 Height 5 ft Weight 108 lb BMI 21.1 BP 100/68 Blood Pressure Location Lt brachial Position Sitting Pulse 63 Pulse Source Pulse Oximeter Pulse Oximetry (%) 98 Oxygen Delivery Method Room Air Intake Visit Reasons: stomach issues Vice President Of Nursing Required: No Accompanied by: Self / Same As Patient Allergies No Known Allergies Allergy (Verified 06/19/24 09:36) Medication List - Last Reconciled 06/19/24 by JEANE Angel norelgestromin-ethin.estradiol 150-35 mcg/24 hr (Xulane) 1 patch transdermal Q7D triamcinolone acetonide 0.025% 1 appl topical BID Tobacco use date assessed: 06/19/24 Dental Screening Dental Screen Date: 06/19/24 Did you have a dental visit in the last 12 months?: Yes Did you have a dental problem in the last 6 months where you did not have access to dental care?: No Was dental information given to patient?: Patient has dentist HPI stomach issues HPI Details The patient is a 43-year-old female presenting with symptoms of persistent nausea, vomiting, and no appetite. She reports these symptoms as ongoing for the past week. The patient denies dysphagia but experiences an occasional sensation of heartburn and pressure in the epigastric region. She mentions using MyLanta with no significant improvement in symptoms. There was no reported association with any other gastrointestinal symptoms such as diarrhea. Water and coffee intake do not exacerbate vomiting or nausea. Right upper quadrant, Right lower quadrant, Left lower abdomen, and epigastric tenderness were noted upon examination. These tenderness raises concern for potential cholecystitis, appendicitis warranting further investigation with imaging. She denies fever, chills, diarrhea, or constipation. [facility] Medical History (Updated 06/19/24 @ 09:52 by JEANE Angel) Asteatotic eczema Low back pain Chronic fatigue Surgical History S/P No history of previous surgery Family History Mother Diabetes High cholesterol Hypertension Stroke Father Arthritis Son No problems noted. Sister No problems noted. Social History Housing: Apartment Alcohol intake: never Patient Tobacco Use Status: Never used Tobacco e-Cigarette/Vaping Use: Never Used Second Hand Smoke Exposure: No service: No Current occupational status: employed Cognitive needs: No Hearing needs: No Vision needs: No Female Reproductive History Menstrual Age of Menarche: 14 Questionnaire PHQ-9 Over the last 2 weeks, how often have you been bothered by any of the following problems? 1. Little interest or pleasure in doing things: not at all 2. Feeling down, depressed, or hopeless: not at all 3. Trouble falling or staying asleep, or sleeping too much: not at all 4. Feeling tired or having little energy: several days 5. Poor appetite or overeating: not at all 6. Feeling bad about yourself - or that you are a failure or have let yourself or your family down: not at all 7. Trouble concentrating on things, such as reading the newspaper or watching television: not at all 8. Moving or speaking so slowly that other people could have noticed. Or the opposite - being so fidgety or restless that you have been moving around a lot more than usual: not at all 9. Thoughts that you would be better off or of hurting yourself in some way: not at all Total score: 1 Depression Screening Interpretation: Negative Depression Screening Done: Yes 57825 - PHQ-9 Billing: Yes Source: Developed by Drs. David East, Debbie Epstein, Kevin Jin and colleagues, with an educational silvia from [employer]. Thrive Questionnaire Date Thrive assessed: 06/19/24 I am a: Patient What is your living situation today?: I choose not to answer this question Within the past 12 months, did the food you bought not last and you didn't have the money to get more?: I choose not to answer this question Within the past 12 months, did you worry whether your food would run out before you got money to buy more?: I choose not to answer this question Do you have trouble paying for medicines?: I choose not to answer this question Do you have trouble getting transportation to medical appointments?: No Do you have trouble paying your heating and electricity bill?: No Do you have trouble taking care of your child, family member or friend?: No Do you have trouble with day-to-day activities such as bathing, preparing meals, shopping, managing finances, etc.?: No Are you currently unemployed and looking for a job?: No Are you interested in more education?: No Please select the resources that you would like help with: None Currently or been in a relationship where the following occur: I choose not to answer THRIVE Score: 0 AUDIT C Alcohol Use Questionnaire (AUDIT-C) 1. How often do you have a drink containing alcohol?: Never 3. How often do you have six or more drinks on one occasion?: Never Total Score: 0 MAILE-7 AMB Questionnaire MAILE-7 Date MAILE - 7 assessed: 06/19/24 Feeling nervous, anxious, or on edge: 0 = Not at all Not being able to stop or control worryin = Not at all Worrying too much about different things: 0 = Not at all Trouble relaxin = Not at all Being so restless that it is hard to sit still: 0 = Not at all Becoming easily annoyed or irritable: 0 = Not at all Feeling afraid as if something awful might happen: 0 = Not at all Total MAILE-7 score (0-4 normal; 5-9 mild; 10-14 moderate; 15-21 severe): 0 Source: Developed by Drs. David East, Debbie Epstein, Kevin Jin and colleagues, with an educational silvia from [employer]. MAILE-7 Assessment Billing MAILE-7 Assessment Tool: MAILE-7 Assessment 50312 Review of Systems ENT Denies hoarseness, Denies odynophagia and Denies sore throat Card Denies chest pain, Denies leg edema and Denies lightheadedness Resp Denies cough and Denies hemoptysis GI Denies abdominal pain, Denies melena, Denies constipation, Reports heartburn, Denies diarrhea, Reports nausea, Denies odynophagia and Reports vomiting Denies urinary frequency, Denies dysuria and Denies urinary urgency Physical exam (Primary Care) Vital Signs: Last Vital Signs Pulse 63 06/19/24 09:21 BP 100/68 06/19/24 09:21 Pulse Ox 98 06/19/24 09:21 Oxygen Delivery Method Room Air 06/19/24 09:21 BMI result Body Mass Index 21.1 Tobacco/Smoking Status: Tobacco use Status Tobacco use date assessed 06/19/24 06/19/24 09:28 Patient Tobacco Use Status Never used Tobacco 06/19/24 09:28 e-Cigarette/Vaping Use Never Used 06/19/24 09:28 PHQ-9: PHQ-9 Score PHQ-9: Total score 1 06/19/24 09:28 Depression Screening Interpretation: Negative Thrive Assessment: Date of Thrive Assessment Date Thrive assessed 06/19/24 06/19/24 09:28 Currently or been in a relationship where the following occur: I choose not to answer Const General: healthy appearing, no acute distress, alert and awake Nutritional Appearance: well nourished HENMT Ears: external ears normal General nose exam: Normal external nose present Eyes Conjunctivae: conjunctivae normal Sclerae: sclerae normal Neck Neck: Yes no lymphadenopathy and Yes no JVD Thyroid: Thyroid normal Carotids: no bruits Resp Effort & Inspection: normal respiratory effort and not tachypneic Auscultation: no crackles, no rales, no rhonchi and no wheezes Cardio Rate: regular rate Rhythm: regular rhythm Heart sounds: no murmurs and normal S1 and S2 GI Palpation (GI): Soft to palpation, Tenderness to palpation present (GI) in the LLQ, in the RLQ and in the RUQ, no hepatomegaly and no splenomegaly Auscultation: normal bowel sounds General: Yes no CVA tenderness Back/Spine/Pelvis Back: no CVA tenderness Coding Level of Care Code Est Pt Level 3 (75907) Diagnoses Heart burn R12 Epigastric abdominal pain R10.13 Right lower quadrant abdominal pain R10.31 Left lower quadrant abdominal pain R10.32 Right upper quadrant abdominal pain R10.11 Additional Codes PHQ-9 - 11515 - PHQ-9 Billing: Yes ([id number]) MAILE-7 Assessment Billing - MAILE-7 Assessment Tool: MAILE-7 Assessment 60475 ([id number]) Time Spent (min) 29 Assessment & Plan Assessment & Plan (1) Heart burn: Code(s): R12 - Heartburn Category: Medical (2) Epigastric abdominal pain: Code(s): R10.13 - Epigastric pain Category: Medical (3) Right lower quadrant abdominal pain: Code(s): R10.31 - Right lower quadrant pain Category: Medical (4) Left lower quadrant abdominal pain: Code(s): R10.32 - Left lower quadrant pain Category: Medical (5) Right upper quadrant abdominal pain: Code(s): R10.11 - Right upper quadrant pain Category: Medical Plan The plan is to proceed with an abdominal ultrasound to examine for possible cholelithiasis or cholecystitis given the right upper quadrant tenderness observed. Considering appendicitis as well, but less likely. The patient will commence omeprazole to address GERD symptoms. Additionally, I have ordered blood tests, including CRP and ESR, to evaluate for inflammatory processes. This comprehensive approach aims to identify the etiology of the patient's gastrointestinal symptoms and fatigue and guide future therapeutic interventions accordingly. I will ensure effective communication of results and alterations to the therapeutic approach based on findings. Patient was informed and verbally consented to the use of an ambient scribe for clinic note documentation during this visit. Orders: Orders US abdomen complete Today R10.11 - Right upper quadrant pain, R10.13 - Epigastric pain, R10.31 - Right lower quadrant pain, R10.32 - Left lower quadrant pain Comprehensive Met. Panel Today R10.11 - Right upper quadrant pain, R10.13 - Epigastric pain, R10.31 - Right lower quadrant pain, R10.32 - Left lower quadrant pain CRP High Sensitivity Today R10.11 - Right upper quadrant pain, R10.13 - Epigastric pain, R10.31 - Right lower quadrant pain, R10.32 - Left lower quadrant pain Erythrocyte Sedimentation Rate Today R10.11 - Right upper quadrant pain, R10.13 - Epigastric pain, R10.31 - Right lower quadrant pain, R10.32 - Left lower quadrant pain Complete Blood Count Auto Diff Today R10.11 - Right upper quadrant pain, R10.13 - Epigastric pain, R10.31 - Right lower quadrant pain, R10.32 - Left lower quadrant pain UA CC w/rflx Micro + Cult Today R10.11 - Right upper quadrant pain, R10.13 - Epigastric pain, R10.31 - Right lower quadrant pain, R10.32 - Left lower quadrant pain Lipase Today R10.11 - Right upper quadrant pain, R10.13 - Epigastric pain, R10.31 - Right lower quadrant pain, R10.32 - Left lower quadrant pain Amylase Today R10.11 - Right upper quadrant pain, R10.13 - Epigastric pain, R10.31 - Right lower quadrant pain, R10.32 - Left lower quadrant pain Medications: New omeprazole 20 mg PO DAILY 30 caps 2RF R12 - Heartburn Patient Instructions: - Begin taking omeprazole as instructed before meals. - Stay hydrated and maintain a light, balanced diet as tolerated. - Await scheduling for abdominal ultrasound and proceed promptly. - Complete blood tests as early as feasible. - Call the office if symptoms worsen or do not improve. - Follow up with office for results of ultrasound and blood work. - Continue current medications except as advised.
[2024-06-19 09:21] VITALS: BP 100/68; PULSE 63; O2SAT 98; BMI 21.1
--- OUTSIDE RECORDS SUMMARY | 2024-06-19 09:43 | XMS_ITS | Clinical Summary ---
Author Organization [facility] Address [address] [place] [address] Care Team Providers Care Pastry Chef Name Role Phone Domenico Garner MD Primary Care Provider [phone] Source Comments PLEASE NOTE, if this patient is a minor, it may be UNLAWFUL to discuss sensitive information that is contained in these records (such as FAMILY PLANNING, MENTAL HEALTH or SUBSTANCE ABUSE) with the minor patient's parent or other person without the patient's specific authorization.[facility] Allergies No known active allergies Active Problems Problem Noted Date Diagnosed Date Thyroid disease 01/23/2016 Family planning 01/23/2016 Family History Medical History Relation Name Comments Diabetes Mother Relation Name Status Comments Mother Social History Tobacco Use Types Packs/Day Years Used Date Smoking Tobacco: Never Alcohol Use Standard Drinks/Week Comments No 0 (1 standard drink = 0.6 oz pur e alcohol) Social Connections Answer Date Recorded Social Connections and Isolation 0 10/26/2018 Financial Resource Strain Answer Date R ecorded Financial Resource Strain 0 2018 Stress Answer Date Recorded Stress 0 10/26/2018 Physical Activity Answer Date Recorded Physical Activity 0 10/26/2018 Food Insecurity Answer Date Recorded Food 0 10/26/2018 Transportation Needs Answer Date Record ed Transportation 0 10/26/2018 Housing Stability Answer Date Recorded Housing 0 10/26/2018 Safety and Environment Answer Date Ramy rded Safety 0 10/26/2018 Utilities Answer Date Recorded Utilities 0 10/26/2018 Employment Answer Date Recorded Employment 0 10/26/2018 Comments No Sex and Gender Information Value Date Recorded Sex Assigned at Not on file Legal Sex Female 11:07 AM PDT Gender Identity Not on file Sexual Orientation Not on file Last Filed Vital Signs Vital Sign Reading Time Taken Comments Blood Pressure 86/55 01/23/2016 2:12 PM EST Pulse 69 01/23/2016 2:12 PM EST Temperature 36.3 ??C (97.4 ??F) 01/23/2016 2:12 PM ES T Respiratory Rate 16 01/23/2016 2:12 PM EST Oxygen Saturation 100% 01/23/2016 2:12 PM EST Inhaled Oxygen Concentration - - Weight 45.7 kg (100 lb 12.8 oz) 01/23/2016 2:12 PM EST Height 152.4 cm (5') 01/23/2016 2:12 PM EST Body Mass Index 19.69 01/23/2016 2:12 PM EST Plan of Treatment Not on file Insurance HEALTH SAFETY NET SAFETY [facility] HE[facility] PLAN Member Subscriber Plan / Payer (Ef fective 2019-Present) Name:Mae Salgado Relation to Subscriber:Self Name:Mae Salgado Payer ID:[id number] Group ID:Not on file Type:Medicaid Address: [facility] [address] [place] [address] Care Teams Pastry Chef Relationship Specialty Start Date End Date Domenico Garner MD [address] [place] [address] PCP - General 06/16/18
--- OUTSIDE RECORDS SUMMARY | 2024-06-19 09:44 | XMS_ITS | Clinical Summary ---
Author Organization [facility] Address [address] [place] [address] [address] [place] [address] Care Team Providers Care Plastic Manager Name Role Phone Unavailable Primary Care Provider Unavailabl e Allergies No known active allergies Medications No known medications Active Problems Problem Noted Date Diagnosed Date Dental calculus 01/08/2023 Localized gingival recession, minimal 01/08/2023 Social History Tobacco Use Types Packs/Day Years Used Date Smoking Tobacco: Never Smokeless Tobacco: Never Tobacco Cessation:Counseling Given: Not Answered Comments Unknown Sex and Gender Information Value Date Recorded Sex Assigned at Female 01/01/2022 10:39 AM EDT Legal Sex Female 10:39 AM EDT Gender Identity Choose not to disclose 10:39 AM EDT Sexual Orientation Choose not to disclose 2021 10:39 AM EDT Last Filed Vital Signs Vital Sign Reading Time Taken Comments Blood Pressure 108/68 01/08/2023 8:04 AM EST Pulse 70 01/08/2023 8:04 AM EST Temperature - - Respiratory Rate - - Oxygen Saturation - - Inhaled Oxygen Concentration - - Weight - - Height - - Body Mass Index - - Plan of Treatment Health Maintenance Due Date Last Done Comments Depression Screening 1982 HIV Screening 1982 SDOH Screening 1982 Alcohol/Substance Use Screening 1994 Family Planning (PISQ) 1997 Hepatitis C Screening 2000 Hepatitis B Vaccines (1 of 3 - 19+ 3-dose series) 2001 Pap Smear 06/24/2003 Cervical Cancer Screening 2012 HPV/Cotest 2012 Mammogram 2022 Dental Oral Exam 05/04/2023 11/02/2022, 04/26/2021 Dental Prophylaxis 07/10/2023 01/08/2023, 12/28/2021, 05/12/2021 COVID-19 Vaccine (3 - 2023-2 5 season) 2023 07/06/2020, 06/08/2020 Influenza Vaccine (#1) 2023 Dental X-Ray: Bitewings 11/04/2023 11/03/19, 04/26/2021 Tobacco Screening 01/09/2024 01/08/2023 Dental X-Ray: Full Mouth 04/27/2024 04/26/2021 DTaP/Tdap/Td Vaccines (2 - T d or Tdap) 10/01/2027 09/30/2017 Zoster Vaccines (1 of 2) 2032 RSV Patients and Patients Aged 60 years or older (1 - 1-dose 75+ series) 2057 HIB Vaccines Aged Out No longer eligi ble based on patient's age to complete this topic HPV Vaccines Aged Out No longer eligi ble based on patient's age to complete this topic Hepatitis A Vaccines Aged Out No long er eligible based on patient's age to complete this topic IPV Vaccines Aged Out No longer eligi ble based on patient's age to complete this topic Meningococcal Vaccine Aged Out No demetrius alida eligible based on patient's age to complete this topic Pneumococcal Vaccine: Pediatrics (0 to 5 Years) and At-Risk Patients (6 to 49) Years) Aged Out No longer eligible b ased on patient's age to complete this topic RSV under 20 months Aged Out No longe r eligible based on patient's age to complete this topic Rotavirus Vaccines Aged Out No longer eligible based on patient's age to complete this topic Procedures Procedure Name Priority Date/Time Associated Diagnosis Comments PROPHYLAXIS - ADULT Routine 01/08/2023 8 :00 AM EST Dental calculus BITEWINGS - 4 RADIOGRAPHIC IMAGES Routine 11/02/2022 8:00 AM EDT PERIODIC ORAL EVALUATION - ESTABLISHED PATIENT Routine 11/02/2022 8:00 AM EDT INTRAORAL - COMPLETE SERIES OF RADIOGRAPHIC IMAGES Routine 04/26/2021 12:00 AM EST from Last 3 Months or Most Recently Relevant to Health Maintenance Insurance DENTAL - [facility] PARTIAL (MEDICAID)
--- OUTSIDE RECORDS SUMMARY | 2024-06-19 09:44 | XMS_ITS | Continuity of Care Document ---
Author Organization [facility] Address [address] [place] [address] Phone Care Team Providers Care Bottle Label Inspector Name Role Phone Unavailable Unavailable Unavailable Allergies, Adverse Reactions, Alerts Substance Reaction Status Criticality No Known Drug Allergies Active No I nformation Medications Medication Instructions Dosage Effective Dates (start - stop) Status Comments Ortho Evra 150 mcg-20 mcg/24 hr transdermal patch apply 1 patch by transdermal route every week - No Longer Active Procedures Procedure Date Preven Meds E&m Estab Pt; 18-3 14 Glu; Crow Routine Venipuncture Offic/outpt E&m Estab Low-mod 4 Offic/outpt E&m Estab Low-mod 4 Smear Prim W/intrpt; Wet Mnt W 14 Tiss Exam Fungi Urin Pg Test Visual Color Comp 14 OFFICE/OUTPATIENT VISIT, EST Gonadotropin Chorionic; Crow Routine Venipuncture Offic/outpt E&m Estab Low-mod 3 No Charge Encounter Urin Pg Test Visual Color Comp 13 Offic/outpt E&m Estab Low-mod 3 Offic/outpt E&m Estab Low-mod 3 Tiss Exam Fungi Smear Prim W/intrpt; Wet Mnt W 13 Routine Venipuncture Electrolyte Panel Thyroid Stim Hormone Complete Cbc W/Auto Diff Wbc Tdap Vaccine >7 Im, State Supplied Immuniz Admin; 1/combo Vacc/to 13 Hiv-1/Hiv-2, Single Assay Preven Meds E&m Estab Pt; 18-3 13 OFFICE/OUTPATIENT VISIT, EST Ua Dipstik/tablet; Non-auto W/ 13 Offic/outpt E&m Estab Low-mod 3 Cult Bacterial Urin; Crow [place] 13 Flu Vaccine, 3 Yrs & >, Im, [employer] Supply Immunization Admin. Flu Offic/outpt E&m New Mod Sever 2 Results Test Name Date and Time Measure Units Reference Range Abnormal Flag Status Commen ts Panel Description: Glucose Final Glucose 09:17:00 100.00 mg/dL 70.00-110.00 Final Advance Directives Directive Yes / No Effective Date File Name No Information Encounters Encounter Description Practice Location Reason(s) For Visit Diagnoses Date Provider Providers Copied on Encounter Preven Meds E&m Estab Pt; [address], [id number], [place] tel:[phone] [facility] preventive exam (chief complaint) Routine Medical ExamRoutine Medical ExamSCREEN-DI ABETES MELLITUS 4 No Information Offic/outpt E&m [address], [id number], [place] tel:[phone] [facility] vaginal bleeding (chief complaint) NONINFLAM DIS VAGINA NEC 4 Verenice Israel. [address] [place], [address], [place]. tel:[phone] Offic/outpt E&m [facility] , [address] [place] [address], [id number], [place] tel:[phone] [facility] contraceptive management (chief complaint)vag inal discharge (chief complaint) CONTRACEPTIVE MANGMT NECVaginitis 4 No Information OFFICE/OUTPA TIENT VISIT, EST [facility] , [address] [place] [address], [id number], [place] tel:[phone] [facility] contraceptive management (chief complaint) CONTRACEPTIVE MANGMT NOSSKIN ANOMALY NEC 4 No Information Offic/outpt E&m Estab [facility] , [address] [place] [address], [id number], [place] tel:[phone] [facility] abnormal menstruation (chief complaint) TEST-POSITIVE 3 Verenice Israel. [address] [place] [address], [address], [place]. tel:[phone], [id number], [place] tel:[phone] [facility] test result (chief complaint) ADMINISTRTVE KEYT NEC 3 No Information Offic/outpt E&m Estab [facility] , [address] [place] [address], [id number], [place] tel:[phone] [facility] amenorrhea (chief complaint) ABSENCE OF MENSTRUATION 3 Indio Walton. [address] [place] [address], [address], [place]. tel:[phone] Offic/outpt E&m Estab [address], [id number], [place] tel:[phone] [facility] suture removal (chief complaint) OPEN WOUND OF HANDBATTER BY SPOUSE/PARTNE R 3 Verenice Israel. [address] [place], [address], [place]. tel:[phone] Preven Meds E&m Estab Pt; 18-[address], [id number], [place] tel:[phone] [facility] preventive exam (chief complaint) Routine Medical ExamVaginitis Gynecological ExaminationFa tigue / MalaiseVACCIN ATION FOR DTP-DTAPSCREE N FOR VENERAL DISRoutine Medical Exam 3 No Information Offic/outpt E&m [facility] , [address] [place] [address], [id number], tel:[phone] [facility] urinary symptoms (acute) (chief complaint) DYSURIAInflue nza Vaccine 3 Jt Ashton. [address], [place], [address], [place]. tel:[phone] Offic/outpt E&m [facility] , [address] [place] [address], [id number], tel:[phone] [facility] establish care (chief complaint)con traceptive management (chief complaint) CONTRACEPTIVE MANGMT NOS 2 No Information Family History Family Member Type [...] Record Payers Payer name Insurance type Covered democrat ID Authoriza tion(s) No Information Social History [...] dated '10/07/2013 08:00'. preventive exam (chief complaint) Reason For Referral Reason For Referral No Information Plan Of Treatment Date Type Action Status Goal H&P. Due on due Goal Breast exam. Due on 014 due Future Order: Lab Order Urine cu lture ([id number]), Appointment on: , Sent on: Sent History Of Present Illness Encounter Date Complaint History Of Prese nt Illness No Information Functional Status Date Functional Assessmen t No Information Instructions Date Instruction Additional Infor mation No Information Assessments Type Assessment Date No Information Mental Status Date Cognitive Assessment Orientation - [place] ed to time, place, person, situation. Patient Care Teams Name Effective Dates (start - stop) Status Members No Information
--- OUTSIDE RECORDS SUMMARY | 2024-06-19 09:44 | XMS_ITS | Encounter Summary ---
Author Organization [employer] [facility] Address [address] [place] [address] 7 [place] [address] Care Team Providers Care Field Specialist Name Role Phone Unavailable Primary Care Provider Unavailabl e Encounter Details Date Type Department Care Team (Latest Contact Info) Description 05/12/2021 Abstract [facility] CONVERSIONS Dental, Provider, DDS Social History Tobacco Use Types Packs/Day Years Used Date Smoking Tobacco: Never Assessed Comments Unknown Sex and Gender Information Value Date Recorded Sex Assigned at Female 01/01/2022 10:39 AM EDT Legal Sex Female 10:39 AM EDT Gender Identity Choose not to disclose 10:39 AM EDT Sexual Orientation Choose not to disclose 2021 10:39 AM EDT documented as of this encounter Plan of Treatment Not on file documented as of this encounter Visit Diagnoses Not on filedocumented in this encounter
== END 2024-06-19 10:14 | disposition home or self-care (01) ==
LOC: HO.HMCH 09:17
PROVIDERS: PCP Internal Medicine
DX: R10.13 Epigastric pain (principal); R10.31 Right lower quadrant pain; R10.32 Left lower quadrant pain; R10.11 Right upper quadrant pain

== ENCOUNTER → 2024-06-19 09:16 | Outpatient (BNVA) | payer OTHER, SELFPAY | PROVIDERS: PCP Internal Medicine | DX: R12 Heartburn (principal); R10.31 Right lower quadrant pain; R10.32 Left lower quadrant pain; R10.11 Right upper quadrant pain | CPT/HCPCS: 96127; 99212 ==

== ENCOUNTER 2024-06-20 08:37 | Outpatient (REF) | payer SELFPAY ==
[2024-06-20 08:54] LABS: MANUAL DIFF FLAG NO
[2024-06-20 09:07] LABS: Basophils Absolute Auto 0.1 X10*3/uL (0.0-0.2); Eosinophils Absolute Auto 0.4 X10*3/uL (0.0-0.4); Eosinophils Percent Auto 4.8 % (0-4); Hematocrit 39.5 % (37.0-47.0); Hemoglobin 12.9 g/dl (12.0-16.0); Imm Gran Abs Auto 0.02 X10*3/uL (0.00-0.03); Imm Gran Pct Auto 0.3 % (0.0-0.4); Lymphocytes Absolute Auto 2.2 X10*3/uL (1.2-4.9); Lymphocytes Percent Auto 29.6 % (20-40); Mean Corpuscular HGB Conc 32.7 g/dl (31.0-35.0); Mean Corpuscular Hemoglobin 28.2 pg (27.0-33.0); Mean Corpuscular Volume 86.4 fL (80.0-98.0); Mean Platelet Volume 10.6 fL (9.4-12.3); Monocytes Absolute Auto 0.4 X10*3/uL (0.1-1.2); Monocytes Percent Auto 4.9 % (2-11); Neutrophils Absolute Auto 4.4 x10*3/uL (2.0-8.3); Neutrophils Percent Auto 59.4 % (45-73); Platelet Count 292 X10*3/uL (160-400); Red Blood Count 4.57 X10*6/uL (4.20-5.50); White Blood Count 7.3 X10*3/uL (4.8-10.8)
[2024-06-20 09:17] LABS: Appearance Urine Clear; Color Urine Yellow; Glucose Urine UA Negative (Negative); Leukocyte Esterase Urine Negative (Negative); Nitrite Urine Negative (Negative); PH 8.5 (5.0-9.0); Urine Blood Negative (Negative); Urine Ketones Negative (Negative); Urine Protein Negative (Neg-Trace)
[2024-06-20 09:46] LABS: Erythrocyte Sedimentation Rate 19 MM/HR (0-20)
[2024-06-20 10:03] LABS: Alanine Aminotransferase 8 U/L (0-31); Albumin Level 3.7 g/dL (3.5-5.0); Alkaline Phosphatase 66 U/L (39-117); Amylase 84 U/L (28-100); Aspartate Amino Transferase 17 U/L (5-31); Bilirubin Total 0.4 mg/dL (0.0-1.0); Blood Urea Nitrogen 11 mg/dL (9-16); Calcium 8.5 mg/dL (8.4-10.2); Estimated Glomerular Filt Rate > 60; Glucose Random 89 mg/dL (60-115); Lipase 28 U/L (8-78); Total Protein 7.2 g/dL (6.5-8.0)
[2024-06-20 10:25] LABS: Anion Gap 10 (12-20)
[2024-06-20 10:32] LABS: Carbon Dioxide 25 mmol/L (22-29); Chloride 108 mmol/L (96-108); Potassium 4.2 mmol/L (3.3-5.1); Sodium 139 mmol/L (135-145)
[2024-06-22 13:53] LABS: CRP High Sensitivity 0.7 mg/L
== END 2024-06-20 08:38 | disposition home or self-care (01) ==
LOC: HO.LAB 08:37
DX: R10.13 Epigastric pain (principal); R10.31 Right lower quadrant pain; R10.32 Left lower quadrant pain; R10.11 Right upper quadrant pain
CPT/HCPCS: 36415; 80053; 81003; 82150; 83690; 85025; 85652; 86141

== ENCOUNTER 2024-06-25 09:58 | Outpatient (REF) | payer OTHER, SELFPAY ==
--- NOTE | ~2024-06-25 | US_ITS ---
EXAMINATION: US ABDOMEN COMPLETE CLINICAL INFORMATION: Right upper quadrant abdominal pain.. COMPARISON: None available. TECHNIQUE: Real-time imaging of the abdominal viscera. FINDINGS: PANCREAS: Visualized portions are unremarkable. ABDOMINAL AORTA: The proximal, mid, and distal segments are normal in caliber. INFERIOR VENA CAVA: Visualized portions are normal. LIVER: The liver is normal in size. Right hepatic lobe measures 12.0 cm. The liver contour is normal. Parenchymal echogenicity is normal. No focal hepatic lesion. There is no intrahepatic biliary duct dilatation seen. GALLBLADDER: The gallbladder is physiologically distended without evidence of stones, sludge, polyps, wall thickening or pericholecystic fluid. COMMON BILE DUCT: Normal in caliber measuring 0.3 cm in diameter. RIGHT KIDNEY: No hydronephrosis. No renal calculi or focal parenchymal lesions. The kidney measures 9.9 cm in maximum dimension. LEFT KIDNEY: No hydronephrosis. No renal calculi or focal parenchymal lesions. The kidney measures 9.2 cm in maximum dimension. SPLEEN: The spleen measures 9.1 cm in maximum dimension. FREE FLUID: None. US/US abdomen complete IMPRESSION: Normal abdominal ultrasound. Electronically signed by: Lauro Lentz MD 06/25/2024 11:09 AM EDT
--- OUTSIDE RECORDS SUMMARY | 2024-06-25 11:19 | XMS_ITS | Clinical Summary ---
Author Organization [facility] Address [address] [place] [address] Care Team Providers Care Cafeteria Worker Name Role Phone Domenico Garner MD Primary Care Provider Source Comments PLEASE NOTE, if this patient [...] on file Insurance HEALTH SAFETY NET SAFETY [facility] HEALTH PLAN Member Subscriber Plan / Payer (Ef fective 2019-Present) Name:Mae Salgado Relation to Subscriber:Self Name:Mae Salgado Payer ID:[id number] Group ID:Not on file Type:Medicaid Address: [facility] [address] [place] [address] Care Teams Cafeteria Worker Relationship Specialty Start Date End Date Domenico Garner MD [address] [place] [address] PCP - General 06/16/18
--- OUTSIDE RECORDS SUMMARY | 2024-06-25 11:19 | XMS_ITS | Encounter Summary ---
Author Organization [employer] [facility] Address [address] [place] [address] 7 [place] [address] Care Team Providers Care Salesperson Men'S Hats Name Role Phone Unavailable Primary Care Provider Unavailabl e Encounter Details Date Type Department Care Team (Latest Contact Info) Description 05/12/2021 Abstract [facility] CONVERSIONS Dental, Provider, DDS Social History [...]
--- OUTSIDE RECORDS SUMMARY | 2024-06-25 11:19 | XMS_ITS | Clinical Summary ---
Author Organization [facility] Address [address] [place] [address] [address] [place] [address] Care Team Providers Care Research Laboratory Manager Name Role Phone Unavailable Primary Care [...]
--- OUTSIDE RECORDS SUMMARY | 2024-06-25 11:19 | XMS_ITS | Continuity of Care Document ---
Author Organization [facility] Address [address] [place] [address] Phone Care Team Providers Care Change Management Facilitator Name Role Phone Unavailable Unavailable Unavailable Allergies, [...] Estab Low-mod 3 Cult Bacterial Urin; Crow [place] 13 Flu Vaccine, 3 Yrs & >, [...] on Encounter Preven Meds E&m Estab Pt; [address], [id number], [place] tel:[phone] [facility] preventive exam (chief complaint) Routine Medical ExamRoutine Medical ExamSCREEN-DI ABETES MELLITUS 4 No Information Offic/outpt E&m [address], [id number], [place] tel:[phone] [facility] vaginal bleeding (chief complaint) NONINFLAM DIS VAGINA NEC 4 Verenice Israel. [address] [place], [address], [place]. tel:[phone] Offic/outpt E&m [facility] , [address] [place] [address], [id number], [place] tel:[phone] Acute Care Pod contraceptive management (chief complaint)vag inal discharge (chief complaint) CONTRACEPTIVE MANGMT NECVaginitis 4 No Information OFFICE/OUTPA TIENT VISIT, EST [facility] , [address] [place] [address], [id number], [place] tel:[phone] [facility] contraceptive management (chief complaint) CONTRACEPTIVE MANGMT NOSSKIN ANOMALY NEC 4 No Information Offic/outpt E&m Estab [facility] , [address] [place] [address], [id number], [place] tel:[phone] [facility] abnormal menstruation (chief complaint) TEST-POSITIVE 3 Verenice Israel. [address] [place] [address], [address], [place]. tel:[phone], [id number], [place] tel:[phone] [facility] test result (chief complaint) ADMINISTRTVE KEYT NEC 3 No Information Offic/outpt E&m Estab [facility] , [address] [place] [address], [id number], [place] tel:[phone] [facility] amenorrhea (chief complaint) ABSENCE OF MENSTRUATION 3 Indio Walton. [address] [place] [address], [address], [place]. tel:[phone] Offic/outpt E&m Estab [address], [id number], [place] tel:[phone] [facility] suture removal (chief complaint) OPEN WOUND OF HANDBATTER BY SPOUSE/PARTNE R 3 Verenice Israel. [address] [place], [address], [place]. tel:[phone] Preven Meds E&m Estab Pt; 18-[address], [id number], [place] tel:[phone] [facility] preventive exam (chief complaint) Routine Medical ExamVaginitis Gynecological ExaminationFa tigue / MalaiseVACCIN ATION FOR DTP-DTAPSCREE N FOR VENERAL DISRoutine Medical Exam 3 No Information Offic/outpt E&m [facility] , [address] [place] [address], [id number], tel:[phone] [facility] urinary symptoms (acute) (chief complaint) DYSURIAInflue nza Vaccine 3 Jt Ashton. [address], [place], [address], [place]. tel:[phone] Offic/outpt E&m [facility] , [address] [place] [address], [id number], tel:[phone] [facility] establish care (chief complaint)con traceptive management [...] Record Payers Payer name Insurance type Covered alliance party ID Authoriza tion(s) No Information Social [...] Future Order: Lab Order Urine cu lture ([id number]), Appointment on: , Sent on: Sent History Of Present Illness Encounter Date Complaint History Of Prese nt Illness No Information Functional Status Date Functional Assessmen t No Information Instructions Date Instruction Additional Infor mation No Information Assessments Type Assessment Date No Information Mental Status Date Cognitive Assessment Orientation - [place] ed to time, place, person, situation. Patient Care Teams Name Effective Dates (start - stop) Status Members No Information
== END 2024-06-25 09:59 | disposition home or self-care (01) ==
LOC: HO.US 09:58
DX: R10.11 Right upper quadrant pain (principal); R10.32 Left lower quadrant pain; R10.31 Right lower quadrant pain; R10.13 Epigastric pain
CPT/HCPCS: 76700

== ENCOUNTER → 2024-06-25 10:08 | Outpatient (BNV) | payer OTHER, SELFPAY | PROVIDERS: Visit Provider Radiology Diagnostic Radiology | DX: R10.11 Right upper quadrant pain (principal) | CPT/HCPCS: 76700 ==

== ENCOUNTER 2024-08-26 07:58 | Outpatient (AMB) | payer OTHER, SELFPAY ==
--- OUTSIDE RECORDS SUMMARY | 2024-08-26 08:05 | XMS_ITS | Clinical Summary ---
Author Organization [facility] Address [address] [place] [address] Care Team Providers Care Pan Washer Hand Name Role Phone Doemnico Garner MD Primary Care Provider [phone] Source Comments PLEASE NOTE, if this patient [...] 69 01/23/2016 2:12 PM EST Temperature 36.3 C (97.4 F) 01/23/2016 2:12 PM EST Respiratory Rate 16 01/23/2016 2:12 PM EST Oxygen Saturation 100% 01/23/2016 2:12 PM EST Inhaled Oxygen Concentration - - Weight 45.7 kg (100 lb 12.8 oz) 01/23/2016 2:12 PM EST Height 152.4 cm (5') 01/23/2016 2:12 PM EST Body Mass Index 19.69 01/23/2016 2:12 PM EST Plan of Treatment Not on file Insurance HEALTH SAFETY NET SAFETY NET [facility] Member Subscriber Plan / Payer (Ef fective 2019-Present) Name:Mae Salgado Relation to Subscriber:Self Name:Mae Salgado Payer ID:[id number] Group ID:Not on file Type:Medicaid Address: [facility] [address] [place] [address] Care Teams Pan Washer Hand Relationship Specialty Start Date End Date Domenico Garner MD [address] [place] [address] PCP - General 06/16/18
--- NOTE | 2024-08-26 08:06 | MHC.OFFVIS ---
Vital Signs 08/26/24 08:14 Height 5 ft Weight 106 lb BMI 20.7 BP 104/55 L Blood Pressure Location Lt brachial Position Sitting Pulse 60 Pulse Oximetry (%) 98 Oxygen Delivery Method Room Air Intake Visit Reasons: Epigastric pain/RLQ,LLQ Pain Intake Note: Patient new consult for Epigastric pain, RLQ, and LLQ Pain. Patient cc: vomiting/nauseas, epigastric pain, and no appetite. Supervisor Process Testing Required: Yes Supervisor Process Testing Services: Supervisor Process Testing Present Supervisor Process Testing Name: Rosal[place] [id number] Information Interpreted: non-clinical & clinical Accompanied by: Self / Same As Patient Allergies No Known Allergies Allergy (Verified 08/26/24 08:05) Medication List - Last Reconciled 08/26/24 by Danni Nicholas CNP norelgestromin-ethin.estradiol 150-35 mcg/24 hr (Xulane) 1 patch transdermal Q7D omeprazole 20 mg PO DAILY triamcinolone acetonide 0.025% 1 appl topical BID HPI HPI Epigastric pain/RLQ,LLQ Pain: Details: Patient is a 44-year-old female with PMH of chronic low back pain and eczema. Referred by PCP for further evaluation epigastric pain and GERD symptoms. Patient presents with complaints of epigastric pain and acid reflux starting two months ago. She reports a sensation of bloating in the epigastric region which has led to a loss of appetite but does not have any associated pain. There is an increase in nausea but no episodes of vomiting. She describes a sour taste and lack of hunger. Her primary care provider prescribed omeprazole 20 mg which initially provided some relief, but symptoms have recurred despite continued usage. Her bowel habits include daily stool passage with occasional diarrhea, which appears to be diet-related. There are no reports of blood in the stool. Patient denies: fever/chills, n/v, regurgitation, dysphasia, unintentional wt loss, ab pain or melena/hematochezia. Social hx: -denies ETOH use -denies recreational drug use -non-smoker - family hx as below -denies personal hx of CA - no prior surgical/procedural history requiring sedation/anesthesia. [facility] Medical History (Updated 08/26/24 @ 08:49 by Danni Nicholas CNP) Colon cancer screening Asteatotic eczema Low back pain Chronic fatigue Surgical History S/P No history of previous surgery Family History (Updated 08/26/24 @ 08:32 by Danni Nicholas CNP) Mother Diabetes High cholesterol Hypertension Stroke Father Arthritis Son No problems noted. Sister No problems noted. Maternal Grandfather Colon cancer Social History Housing: Apartment Alcohol intake: never Patient Tobacco Use Status: Never used Tobacco e-Cigarette/Vaping Use: Never Used Second Hand Smoke Exposure: No service: No Current occupational status: employed Cognitive needs: No Hearing needs: No Vision needs: No Female Reproductive History Menstrual Age of Menarche: 14 Review of Systems Const Reports as per HPI ENT Reports as per HPI Card Reports as per HPI Resp Reports as per HPI GI Reports as per HPI Reports as per HPI Physical Exam Vital Signs: Last Vital Signs Pulse 60 08/26/24 08:14 BP 104/55 L 08/26/24 08:14 Pulse Ox 98 08/26/24 08:14 Oxygen Delivery Method Room Air 08/26/24 08:14 BMI result Body Mass Index 20.7 Const General: healthy appearing, no acute distress and well developed Nutritional Appearance: well nourished Orientation/consciousness: patient oriented x3 HEENT Head: Yes normal to inspection, Yes normocephalic and Yes atraumatic Face and sinus: Yes normal facial exam Eyes General: appearance normal, both eyes and all related structures Neck Neck: Yes normal visual inspection Resp Effort & Inspection: normal respiratory effort, able to speak in complete sentences, no tracheal deviation and symmetric chest movement Auscultation: clear to auscultation bilaterally Cardio Jugular venous distension: no JVD Rate: regular rate Rhythm: regular rhythm Heart sounds: S1 normal heart sound present, S2 normal heart sound present, no gallops and no murmurs GI Inspection: Yes normal to inspection and No distended Palpation (GI): Soft to palpation, not firm, nontender and No hepatosplenomegaly present Auscultation: normal bowel sounds Neuro General: patient oriented x3 Gait exam (Neuro): Normal gait present Psych Appearance: grossly normal Mental Status: mental status grossly normal Speech and movement: Normal speech and movement present Affect: normal affect Attitude: cooperative Thought process: Normal thought process present Thought content: Normal thought content present Insight: Good insight present (Psych) Judgement: Good judgement present (Psych) Results Reviewed Results Reviewed: Date of Service: 06/25/24 Procedure(s): US abdomen complete Accession Number(s): [id number] cc: JigarEverton FNP-C~ EXAMINATION: US ABDOMEN COMPLETE CLINICAL INFORMATION: Right upper quadrant abdominal pain.. COMPARISON: None available. TECHNIQUE: Real-time imaging of the abdominal viscera. FINDINGS: PANCREAS: Visualized portions are unremarkable. ABDOMINAL AORTA: The proximal, mid, and distal segments are normal in caliber. INFERIOR VENA CAVA: Visualized portions are normal. LIVER: The liver is normal in size. Right hepatic lobe measures 12.0 cm. The liver contour is normal. Parenchymal echogenicity is normal. No focal hepatic lesion. There is no intrahepatic biliary duct dilatation seen. GALLBLADDER: The gallbladder is physiologically distended without evidence of stones, sludge, polyps, wall thickening or pericholecystic fluid. COMMON BILE DUCT: Normal in caliber measuring 0.3 cm in diameter. RIGHT KIDNEY: No hydronephrosis. No renal calculi or focal parenchymal lesions. The kidney measures 9.9 cm in maximum dimension. LEFT KIDNEY: No hydronephrosis. No renal calculi or focal parenchymal lesions. The kidney measures 9.2 cm in maximum dimension. SPLEEN: The spleen measures 9.1 cm in maximum dimension. FREE FLUID: None. US/US abdomen complete IMPRESSION: Normal abdominal ultrasound. Assessment & Plan Assessment & Plan (1) Epigastric abdominal pain: Code(s): R10.13 - Epigastric pain Category: Medical Plan: Workup initiated by PCP including negative ab U/S and normal H&H, electrolytes and LFTs. Continued symptoms despite initial treatment with omeprazole. Additional Tests: H. pylori breath test; upper endoscopy to evaluate esophagus and stomach for tissue changes. Medications: Hold omeprazole 2 weeks before testing; bridge with sucralfate up to 3 times a day as needed. Will trial PPI increase after testing. Lifestyle Modifications: Avoid known dietary triggers, elevate head while sleeping, avoid late meals, smaller meals. (2) Colon cancer screening: Code(s): Z12.11 - Encounter for screening for malignant neoplasm of colon Category: Medical Plan: Colonoscopy concurrent with upper endoscopy. Family history of colon cancer. Medications: -prescriptions for laxative tablets and MiraLax sent to pharmacy; instructions for Gatorade purchase and clear liquid diet given. Patient educated on scheduling process, procedure preparation, including avoiding certain foods and ensuring clear liquid intake Advised on necessity for ride post-procedure due to sedation. Plan Follow-up after endoscopy or sooner as needed Time: I spent a total of 50 minutes on the date of encounter which includes: Preparing to see the patient (reviewed previous documentation, test results and medical history) Performing a medically appropriate exam and/or evaluation Ordering medications, tests, and procedures Documenting clinical information in the health record Orders: Orders H Pylori Breath Test Today R10.13 - Epigastric pain Medications: New sucralfate Take on tablet three times daily as needed. Take an empty stomach. Avoid antacids within 30 minutes. 1 g PO TID PRN 90 tabs 1RF bloating bisacodyl Take four tablets once for 1 day per colonoscopy instructions 5 mg PO ONCE 4 tabs 0RF 1 day polyethylene glycol 3350 (Miralax) per colonoscopy prep instructions 238 grams PO ONCE 238 grams 0RF Coding Level of Care Code New Pt New Pt Level 5 (09862) Patient Type New Diagnoses Epigastric abdominal pain R10.13 Colon cancer screening Z12.11
[2024-08-26 08:14] VITALS: BP 104/55; PULSE 60; O2SAT 98; BMI 20.7
== END 2024-08-26 08:57 | disposition home or self-care (01) ==
LOC: HO.HGI 07:59
PROVIDERS: Visit Provider Nurse Practitioner Family
DX: Z01.818 Encounter for other preprocedural examination (principal); Z12.11 Encounter for screening for malignant neoplasm of colon; R10.13 Epigastric pain
CPT/HCPCS: 99204

== ENCOUNTER → 2024-08-26 07:58 | Outpatient (BNVA) | payer OTHER, SELFPAY | PROVIDERS: Visit Provider Nurse Practitioner Family | DX: R10.13 Epigastric pain (principal); Z12.11 Encounter for screening for malignant neoplasm of colon | CPT/HCPCS: 99202 ==

== ENCOUNTER 2024-09-11 08:27 | Outpatient (REF) | payer OTHER, SELFPAY | END 2024-09-11 08:28 | disposition home or self-care (01) | LOC: HO.LNP 08:27 | PROVIDERS: Visit Provider Nurse Practitioner Family | DX: R10.13 Epigastric pain (principal); R10.31 Right lower quadrant pain; R10.32 Left lower quadrant pain; R10.11 Right upper quadrant pain | CPT/HCPCS: 83013; 99211 ==

== ENCOUNTER 2024-09-11 08:27 | Outpatient (AMB) | payer OTHER, SELFPAY ==
--- OUTSIDE RECORDS SUMMARY | 2024-09-10 08:00 | XMS_ITS | Encounter Summary ---
Author Organization [employer] [facility] Address [address] [place] [address] [address] [place] [address] Care Team Providers Care Business Office Associate Name Role Phone Unavailable Primary Care Provider Unavailabl e Reason for Visit * Reason Comments Routine Cleaning Dental Exam x-rays perio chart Encounter Details Date Type Department Care Team (Late st Contact Info) Description 09/10/2024 8:00 AM EDT Office Visit [facility] [address] [place] [address] Sherin Mirza [address] [place] [address] Dental plaque (Primary Dx); Staining of multiple teeth; Localized gingival recession, minimal Social History Tobacco Use Types Packs/Day Years Used Date Smoking Tobacco: Never Smokeless Tobacco: Never Comments Unknown Sex and Gender Information Value Date Recorded Sex Assigned at Female 01/01/2022 10:39 AM EDT Legal Sex Female 10:39 AM EDT Gender Identity Choose not to disclose 10:39 AM EDT Sexual Orientation Choose not to disclose 2021 10:39 AM EDT documented as of this encounter Last Filed Vital Signs Vital Sign Reading Time Taken Comments Blood Pressure 110/66 09/10/2024 7:59 AM EDT Pulse - - Temperature - - Respiratory Rate - - Oxygen Saturation - - Inhaled Oxygen Concentration - - Weight - - Height - - Body Mass Index - - documented in this encounter Progress Notes * Sherin Mirza - 09/10/2024 8:00 AM EDT Patient ID: Mae Salgado is a 44 y.o. adult. Time Out: Timeout Date: 09/10/24, Timeout Time: 0800 (Edu PJazlyn exam, Perio chart x-rays) Location: [facility] Tooth: Maxilla and Mandible Procedure: Exam, X-rays, Prophylaxis, and Perio chart Verified the above with patient, clinical laboratory assistant, and provider. Confirmed via patient's chart, intraorally and by radiographs. Frame Assembler: not applicable Medical Hx: Vitals: Blood pressure 110/66. Medications, Med Hx reviewed with patient and updated in chart. Treatment Provided Dental procedures in this visit D1110 - PROPHYLAXIS - ADULT (Completed) Service provider: Sherin Lewis provider: Duarte Garcia DMD D0210 - INTRAORAL - COMPLETE SERIES OF RADIOGRAPHIC IMAGES (Completed) Service provider: Sherin Mirza Billdali provider: Duarte Garcia DMD D1330 - ORAL HYGIENE INSTRUCTIONS (Completed) Service provider: Sherin Lewis provider: Duarte Garcia DMD D9450 - CASE PRESENTATION, DETAILED AND EXTENSIVE TREATMENT PLANNING (Completed) Service provider: Sherin Mirza Billdali provider: Duarte Garcia DMD Instruments Used: Ultrasonic Scalers, Hand Scalers, and Prophy angle, hydrogen peroxide, added to prophy pumice paste to removed stains. Fluoride: N/A Oral Cancer Screening: No lesions Head/Neck Exam: No Lesions Calculus: None Plaque: Moderate and Generalized Stain: Moderate, Heavy, and black, removed stains as much as possible. Bleeding: Light and Moderate interproximal during scaling. Gingiva: Recession- localized and pink [place]: Fair Perio Chart: Completed Oral hygiene instructions provided to patient including brushing technique and flossing. Recommendations: [place] two times daily, modified deluca technique, Floss daily, Electric toothbrush, Soft bristle toothbrush, [place] Tongue, Anti-sensitivity toothpaste Recall Frequency: 6 mo prophy [place]: Dr. Garcia for mosque #30 Hygienist: Sherin Mirza RDH Cosigned by Duarte Garcia DMD at 09/10/2024 9:15 AM EDT * Duarte Garcia DMD - 09/10/2024 8:00 AM EDT C/C: dental exam I.O.E: localized plaque accumulation, gen stain dentition, localized erythematous and edematous gingiva, broken filling #30 E.O.E: no significant findings (NSF) OCS: NSF Head and neck: NSF Radiographic: broken filling #30, existing large filling #14, localized calculus accumulation Dx: broken filling #30, stain dentition Tx: prophy, recall exam, filling #30 Jassi documented in this encounter Plan of Treatment Upcoming Encounters Date Type Department Care Team (Late st Contact Info) Description 09/23/2024 8:00 AM EDT Office Visit [facility] [address] [place] [address] Duarte Garcia DMD [address] [place] [address] 03/23/2025 8:00 AM EST Office Visit [facility] [address] [place] [address] Sherin Mirza [address] [place] [address] Scheduled Orders Name Type Priority Associated Diagnoses Orde r Schedule ORAL HYGIENE INSTRUCTIONS Dental Routine 1 Occurrences starting 09/10/2024 CASE PRESENTATION, DETAILED AND EXTENSIVE TREATMENT PLANNING Dental Routine 1 Occurrences starting 09/10/2024 30 30 AMALGAM - 3 SURF, PRIMARY OR PERMANENT Dental Routine [address] arting 09/10/2024 CASE PRESENTATION, DETAILED AND EXTENSIVE TREATMENT PLANNING Dental Routine 1 Occurrences starting 09/10/2024 PROPHYLAXIS - ADULT Dental Routine 1 Occ urrences starting 09/10/2024 documented as of this encounter Procedures Procedure Name Priority Date/Time Associated Diagnosis Comments PROPHYLAXIS - ADULT Routine 09/10/2024 8 :00 AM EDT Dental plaque Staining of multiple teeth PERIODIC ORAL EVALUATION - ESTABLISHED PATIENT Routine 09/10/2024 8:00 AM EDT ORAL HYGIENE INSTRUCTIONS Routine 09/10/2024 8:00 AM EDT Dental plaque Staining of multiple teeth Localized gingival recession, minimal INTRAORAL - COMPLETE SERIES OF RADIOGRAPHIC IMAGES Routine 09/10/2024 8:00 AM EDT Dental plaque Staining of multiple teeth Localized gingival recession, minimal CASE PRESENTATION, DETAILED AND EXTENSIVE TREATMENT PLANNING Routine 09/10/2024 8:00 AM EDT Dental plaque Staining of multiple teeth Localized gingival recession, minimal documented in this encounter Visit Diagnoses Diagnosis Dental plaque- Primary Accretions on teeth Staining of multiple teeth Localized gingival recession, minimal documented in this encounter
--- OUTSIDE RECORDS SUMMARY | 2024-09-11 08:34 | XMS_ITS | Clinical Summary ---
Author Organization [facility] Address [address] [place] [address] Care Team Providers Care Care Coordination Manager Name Role Phone Domenico Garner MD Primary [...] Insurance HEALTH SAFETY NET [facility] Member Subscriber Plan / Payer (Ef fective 2019-Present) Name:Mae Salgado Relation to Subscriber:Self Name:Mae Salgado Payer ID:[id number] Group ID:Not on file Type:Medicaid Address: [facility] [address] [place] [address] Care Teams Care Coordination Manager Relationship Specialty Start Date End Date Domenico Garner MD [address] [place] [address] PCP - General 06/16/18
--- NOTE | 2024-09-11 08:40 | AM.OFFVISNUR ---
Intake Visit Reasons: h pylori-may come early Allergies No Known Allergies Allergy (Verified 08/26/24 08:05) Nursing Note Patient presents for collection of H Pylori breath test. Patient has been fasting for 1 hour (nothing to eat, drink, no chewing gum or smoking) has not taken any antacid medication for at least 2 weeks and has no allergies to artificial sweeteners.?? Assessment & Plan Assessment & Plan (1) Epigastric abdominal pain: Code(s): R10.13 - Epigastric pain Category: Medical (2) Right lower quadrant abdominal pain: Code(s): R10.31 - Right lower quadrant pain Category: Medical (3) Left lower quadrant abdominal pain: Code(s): R10.32 - Left lower quadrant pain Category: Medical (4) Right upper quadrant abdominal pain: Code(s): R10.11 - Right upper quadrant pain Category: Medical (5) Heart burn: Code(s): R12 - Heartburn Category: Medical Plan Patient presents for collection of H Pylori breath test. Patient has been fasting for 1 hour (nothing to eat, drink, no chewing gum or smoking) has not taken any antacid medication for at least 2 weeks and has no allergies to artificial sweeteners.???This test checks for an overgrowth of bacteria in your stomach. We all have bacteria but some may have more than others. It is treatable. if the test comes back negative there is nothing else to do. If the test result is positive we will treat you with 2 antibiotics and a medication to decrease the acid in your stomach (PPI) for 2 weeks. Two weeks after you have completed the treatment we will retest you to make sure the overgrowth has resolved. Patient Instructions: Process for specimen collection and reason for testing was explained to the patient. Specimen collection. Patient instructed to take a deep breath and then exhale into the blue bag, filling it up as much as possible. Patient instructed to drink a mixture of water and the artificial sweetener with a straw. A 15 minute wait period was observed. Patient instructed to take a deep breath and then exhale into the pink bag, filling it up as much as possible.? Coding Level of Care Code Established Pt Est Pt Level 1 (87916) Patient Type Established Medical Decision Making Straight Forward Diagnoses Epigastric abdominal pain R10.13 Right lower quadrant abdominal pain R10.31 Left lower quadrant abdominal pain R10.32 Right upper quadrant abdominal pain R10.11 Heart burn R12
== END 2024-09-11 08:52 | disposition home or self-care (01) ==
LOC: HO.HGI 08:27
PROVIDERS: Visit Provider Nurse Practitioner Family
DX: R10.13 Epigastric pain (principal); R10.31 Right lower quadrant pain; R10.32 Left lower quadrant pain; R10.11 Right upper quadrant pain; R12 Heartburn

== ENCOUNTER 2024-10-07 08:47 | Outpatient (AMB) | payer OTHER, SELFPAY ==
[2024-10-07 08:54] VITALS: BP 118/58; PULSE 63; BMI 20.8
--- NOTE | 2024-10-07 08:54 | A.OFFVIS_ITS ---
Vital Signs 10/07/24 08:54 Height 5 ft Weight 106 lb 11.26 oz BMI 20.8 BP 118/58 L Blood Pressure Location Rt brachial Position Sitting Pulse 63 Intake Visit Reasons: Nausea and diarrhea Danni patient ok per June Intake Note: Patient in office today for nausea and diarrhea. CC: Patient states that last Saturday she had to go to [facility] due to vomiting and diarrhea from H pylori treatment. She states that since she stopped medication and is not having anymor diarrhea or vomiting. She reports not feeling hungry. 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 Her primary care provider is Vikash West. PMX Eczema Chronic fatigue Low back pain Early satiety H pylori positive GERD On hormonal control * SURGICAL HISTORY section * ALLERGIES: NKDA * [facility] LABS: Laboratory Tests 06/20/24 09/11/24 08:53 08:55 WBC 7.3 Hgb 12.9 Hct 39.5 Plt Count 292 Estimated GFR > 60 Total Bilirubin 0.4 AST 17 ALT 8 Alkaline Phosphatase 66 Amylase 84 Lipase 28 H. pylori Breath Test Positive ULTRASOUND OF THE ABDOMEN 06/25/2024 FINDINGS: PANCREAS: Visualized portions are unremarkable. ABDOMINAL AORTA: The proximal, mid, and distal segments are normal in caliber. INFERIOR VENA CAVA: Visualized portions are normal. LIVER: The liver is normal in size. Right hepatic lobe measures 12.0 cm. The liver contour is normal. Parenchymal echogenicity is normal. No focal hepatic lesion. There is no intrahepatic biliary duct dilatation seen. GALLBLADDER: The gallbladder is physiologically distended without evidence of stones, sludge, polyps, wall thickening or pericholecystic fluid. COMMON BILE DUCT: Normal in caliber measuring 0.3 cm in diameter. RIGHT KIDNEY: No hydronephrosis. No renal calculi or focal parenchymal lesions. The kidney measures 9.9 cm in maximum dimension. LEFT KIDNEY: No hydronephrosis. No renal calculi or focal parenchymal lesions. The kidney measures 9.2 cm in maximum dimension. SPLEEN: The spleen measures 9.1 cm in maximum dimension. FREE FLUID: None. US/US abdomen complete IMPRESSION: Normal abdominal ultrasound. Review of Danni is note 08/26/2024 Patient presents with complaints of epigastric pain and acid reflux starting two months ago. She reports a sensation of bloating in the epigastric region which has led to a loss of appetite but does not have any associated pain. There is an increase in nausea but no episodes of vomiting. She describes a sour taste and lack of hunger. Her primary care provider prescribed omeprazole 20 mg which initially provided some relief, but symptoms have recurred despite continued usage. Her bowel habits include daily stool passage with occasional diarrhea, which appears to be diet-related. There are no reports of blood in the stool. Patient denies: fever/chills, n/v, regurgitation, dysphasia, unintentional wt loss, ab pain or melena/hematochezia. Assessment & Plan (1) Epigastric abdominal pain: Code(s): R10.13 - Epigastric pain Category: Medical Plan: Workup initiated by PCP including negative ab U/S and normal H&H, electrolytes and LFTs. Continued symptoms despite initial treatment with omeprazole. Additional Tests: H. pylori breath test; upper endoscopy to evaluate esophagus and stomach for tissue changes. Medications: Hold omeprazole 2 weeks before testing; bridge with sucralfate up to 3 times a day as needed. Will trial PPI increase after testing. Lifestyle Modifications: Avoid known dietary triggers, elevate head while sleeping, avoid late meals, smaller meals. (2) Colon cancer screening: Code(s): Z12.11 - Encounter for screening for malignant neoplasm of colon Category: Medical Plan: Colonoscopy concurrent with upper endoscopy. Family history of colon cancer. Medications: -prescriptions for laxative tablets and MiraLax sent to pharmacy; instructions for Gatorade purchase and clear liquid diet given. Patient educated on scheduling process, procedure preparation, including avoiding certain foods and ensuring clear liquid intake Advised on necessity for ride post-procedure due to sedation. Plan Follow-up after endoscopy or sooner as needed Time: I spent a total of 50 minutes on the date of encounter which includes: Preparing to see the patient (reviewed previous documentation, test results and medical history) Performing a medically appropriate exam and/or evaluation Ordering medications, tests, and procedures Documenting clinical information in the health record Orders: Orders H Pylori Breath Test Today R10.13 - Epigastric pain Medications: New sucralfate Take on tablet three times daily as needed. Take an empty stomach. Avoid antacids within 30 minutes. 1 g PO TID PRN 90 tabs 1RF bloating bisacodyl Take four tablets once for 1 day per colonoscopy instructions 5 mg PO ONCE 4 tabs 0RF 1 day polyethylene glycol 3350 (Miralax) per colonoscopy prep instructions 238 grams PO ONCE 238 grams 0RF CORRESPONDENCE On 10/01/24 @ 10:58 Suzi Dowd Wrote To NileSuzi (2) V okay to put her on a cancellation list to see me sooner if I have an opening. On 10/01/24 @ 07:43 Layne Arce Wrote To NileSuzi (2) Patient was VERY upset - I rescheduled her appt. She requested a sooner appt with ANYONE - so I scheduled her 11/13 with June but she would really like something suggest in the meantime. She is having nausea and diarrhea and unable to tolerate the treatment. On 09/29/24 @ 13:10 Solange Yousif Wrote To Solange Yousif 10/01 Solange Yousif completed item. On 09/29/24 @ 09:23 Danni Nicholas Wrote To Solange Yousif please schedule pt for an appt to discuss next steps. On 09/29/24 @ 08:47 Solange Yousif Wrote To Danni Nicholas nadia notes on file can you please reach out to pt On 09/28/24 @ 15:02 Solange Yousif Wrote To Danni Nicholas also i requested nadia notes On 09/28/24 @ 08:57 Solange Yousif Wrote To Danni Nicholas Pt called because she tried medication adjustment and she is still nauseous and had diarrhea. She went to ER in [place] On 09/22/24 @ 09:12 Geri Peng Wrote To Geri Peng telephone call to patient w/ [employer] #[id number]. patient informed of the potential complications of not treating the H Pylori in the [place] agent. patient was advised to decrease Metronidazole to TID instead of QID and that probiotics were sent for her to take daily along with zofran. patient encouraged to take the medications with food but to avoid anything high in fat. patient will re-start treatment. I advised her to call w/ any new s/s. Geri Peng completed item. On 09/22/24 @ 08:52 Danni Nicholas Wrote To Geri Peng Please encouraged treatment as this infection can lead to chronic inflammation in the stomach and/or duodenum ( portion of small intestine) potentially causing ulcers. Advised to reduced metronidazole to three time daily instead of four. I will also prescribe a probiotic and anitnausea medication. Encouraged to take medication with food but avoid high fat foods. Instruct to report any concerning symptoms. Thx On 09/21/24 @ 13:54 Geri Peng Wrote To Danni Nicholas spoke w/ patient and she states she has stopped the H Pylori treatment. patient reports she only took for 3 days. patient reports she is not experiencing any symptoms since holding the medications and it does not sound like she wants to continue. patient is aware these side effects are expected with H Pylori treatment. On 09/21/24 @ 12:57 Solange Yousif Wrote To Geri Peng will someone reach out to this patient please On 09/21/24 @ 09:28 Valery Queen Wrote To Jenn Saavedra (2) Pt called experiencing a lot of diarrhea for the past 5 to 6 days , and some nausea and of off .Pt stopped taking one of the medications. Please advise TODAY'S VISIT She was seen at [facility] for nausea vomiting and diarrhea. She had a cardiac workup that was negative and blood work showing mild leukocytosis of 11.74 1000. Does not appear she had any imaging. Her initial presentation was for onset of 1 month lack of appetite. She is not taking any medications and she can not identify any illness or diet changes that preceded this. She is not losing weight. She also denies any nausea vomiting or abdominal pain. The only associated symptom was not increase in burping. She also denies any constipation and the only diarrhea she had was in response to the antibiotic treatment. She does not have any particular abdominal bloating. Interestingly, her grandfather of stomach cancer and also had upper stomach issues. She is feeling better when she stopped the antibiotics. However, during the treatment she had abdominal pain and severe diarrhea. Reviewing the medications, it seems she was taking tetracycline 4 times a day and Flagyl 4 times a day. This made it difficult for her to schedule around the bismuth tablets which technically should not be taken at the same time. Ordinarily we give this treatment 2 tablets twice a day. However, I believe she had a reaction to the Flagyl because this is common. Also she was taking all of the antibiotics simultaneously, which is not incorrect, but for someone with a sensitive stomach sometimes is not the best approach. It also makes it difficult for us to tell which may have been giving her troubles. I suggest that we try a different treatment and will progress to Levaquin and amoxicillin. We are also going to do this as 1 antibiotic for 2 weeks followed by the next for 2 weeks. She will continue her omeprazole 20 mg twice a day. I also educated her to buy a probiotic supplement and wrote out a suggestion for her of BAASBOX. 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 She will call me if she has any untoward effects and I will see her back in 6 weeks. [facility] Medical History (Updated 10/01/24 @ 12:12 by JEROME Em) Annual physical exam Screen for sexually transmitted diseases Well woman exam with routine gynecological exam control counseling Cervical cancer screening Colon cancer screening Heart burn Helicobacter pylori antibody positive Asteatotic eczema Low back pain Chronic fatigue Surgical History (Updated 10/01/24 @ 12:12 by JEROME Em) History of section, low transverse S/P No history of previous surgery Family History (Updated 08/26/24 @ 08:32 by Danni Nicholas CNP) Mother Diabetes High cholesterol Hypertension Stroke Father Arthritis Son No problems noted. Sister No problems noted. Maternal Grandfather Colon cancer Social History Housing: Apartment Alcohol intake: never Patient Tobacco Use Status: Never used Tobacco e-Cigarette/Vaping Use: Never Used Second Hand Smoke Exposure: No service: No Current occupational status: employed Cognitive needs: No Hearing needs: No Vision needs: No Female Reproductive History Menstrual Age of Menarche: 14 Review of Systems Const Denies fatigue, Denies fever(s), Denies night sweats, Reports poor appetite and Denies weight loss ENT Reports Normal hearing present, Denies dental pain, Denies dysphagia, Denies hearing loss, Denies mouth pain, Denies odynophagia, Denies throat swelling, Denies tongue swelling and Reports other (Dentition adequate) Card Reports no additional complaints Resp Reports no additional complaints GI Details: Denies abdominal pain, Reports belching, Denies melena, Denies bloating, Denies hematochezia, Denies constipation, Denies GI cramping, Denies dysphagia, Denies excessive flatus, Reports early satiety, Denies heartburn, Denies diarrhea, Denies nausea, Denies odynophagia, Denies vomiting and Denies hematemesis Skin/Breast Denies pruritus, Denies lesions, Denies rash and Denies jaundice Neuro Reports Normal hearing present and Denies Abnormal speech present Endo Denies fatigue Aller/Immun Denies throat swelling and Denies tongue swelling Physical Exam Vital Signs: BMI result Body Mass Index 20.8 Const General: cooperative, no acute distress, well developed and well groomed Nutritional Appearance: well nourished and thin Orientation/consciousness: oriented to person, oriented to place and oriented to time Limitations: No language barrier HEENT Head: Yes normocephalic and Yes atraumatic Eyes General: appearance normal, both eyes and all related structures Pupils: Equal, round and reactive pupils present Neck Neck: Yes normal visual inspection and Yes no lymphadenopathy Thyroid: Thyroid normal Resp Effort & Inspection: normal respiratory effort and able to speak in complete sentences Auscultation: clear to auscultation bilaterally Cardio Rate: regular rate Rhythm: regular rhythm Heart sounds: Normal, physiologic split S2 sound present Peripheral pulses: radial pulses present and posterior tibial pulses present GI Inspection: No distended and No Abdominal panniculus present Palpation (GI): Soft to palpation, nontender, no guarding, not rigid and No hepatosplenomegaly present Percussion: Yes normal to percussion Auscultation: normal bowel sounds Rectal Exam - Female: deferred Skin General skin exam: no rashes or lesions noted, turgor normal, skin not dry, no jaundice, No spider nevi and no striae Rashes: no rashes Nails: normal Neuro General: oriented to person, oriented to place and oriented to time Cranial nerves: Yes Equal, round and reactive pupils present and Yes Normal hearing present Speech: No Abnormal speech present Extrem General: Yes normal to inspection, No clubbing, No cyanosis and No edema Psych Appearance: grossly normal and well kempt Mental Status: mental status grossly normal Speech and movement: Normal speech and movement present Affect: normal affect Attitude: cooperative Thought process: Normal thought process present and not confabulating Thought content: Normal thought content present Insight: Fair insight present (Psych) Judgement: Fair judgement present (Psych) Assessment & Plan Assessment & Plan (1) Helicobacter pylori antibody positive: Code(s): R76.8 - Other specified abnormal immunological findings in serum Category: Medical (2) Early satiety: Code(s): R68.81 - Early satiety Category: Medical (3) Loss of appetite: Code(s): R63.0 - Anorexia Category: Medical (4) Epigastric abdominal pain: Code(s): R10.13 - Epigastric pain Category: Medical Plan had was in response to the antibiotic treatment. She does not have any particular abdominal bloating. Her only other complaint is of fatigue but she says ?I work 7 days a week and that is probably why. ? Interestingly, her grandfather of stomach cancer and also had upper stomach issues. She is feeling better when she stopped the antibiotics. However, during the treatment she had abdominal pain and severe diarrhea. Reviewing the medications, it seems she was taking tetracycline 4 times a day and Flagyl 4 times a day. This made it difficult for her to schedule around the bismuth tablets which technically should not be taken at the same time. Ordinarily we give this treatment 2 tablets twice a day. However, I believe she had a reaction to the Flagyl because this is common. Also she was taking all of the antibiotics simultaneously, which is not incorrect, but for someone with a sensitive stomach sometimes is not the best approach. It also makes it difficult for us to tell which may have been giving her troubles. I suggest that we try a different treatment and will progress to Levaquin and amoxicillin. We are also going to do this as 1 antibiotic for 2 weeks followed by the next for 2 weeks. She will continue her omeprazole 20 mg twice a day. I also educated her to buy a probiotic supplement and wrote out a suggestion for her of BAASBOX. 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 Time was also spent educating her about what H pylori is, and why it is important to eradicate it. She was also educated thoroughly about possible side effects and the reason why we need to try to complete the therapy if possible. We also discussed potential future tests such as gastric emptying study depending on how she feels after we confirm eradication. She will call me if she has any untoward effects and I will see her back in 6 weeks. Medications: New levofloxacin 500 mg PO DAILY 30 tabs 0RF R76.8 - Other specified abnormal immunological findings in serum levofloxacin Patient to take 1 antibiotic for 2 weeks, and then immediately start the next 1 for 2 weeks so she will be treated for a total of 4 weeks 500 mg PO DAILY 30 tabs 0RF R76.8 - Other specified abnormal immunological findings in serum amoxicillin Patient to take 1 antibiotic for 2 weeks, and then immediately start the next 1 for 2 weeks so she will be treated for a total of 4 weeks 1,000 mg (2 x 500 mg) PO Q12H 56 caps 0RF 14 days amoxicillin 1,000 mg (2 x 500 mg) PO Q12H 14 days 56 caps 0RF Changed From omeprazole Take one tablet twice daily for 14 days. 20 mg PO BID 28 tabs 0RF R10.13 - Epigastric pain, R76.8 - Other specified abnormal immunological findings in serum To omeprazole Take one tablet twice daily for 14 days. 20 mg PO BID 60 tabs 1RF 30 days R10.13 - Epigastric pain, R76.8 - Other specified abnormal immunological findings in serum Discontinued bismuth subsalicylate Take two tablets four times daily for 14 days. Discontinued Reason: Doctor's Order 524 mg (2 x 262 mg) PO QID 14 days 112 tabs 0RF metronidazole Discontinued Reason: Doctor's Order 500 mg PO QID 56 tabs 0RF tetracycline Take one tablet four times daily for 14 days Discontinued Reason: Doctor's Order 500 mg PO QID 14 days 56 caps 0RF Coding Level of Care Code Est Pt Level 4 (66036) Diagnoses Helicobacter pylori antibody positive R76.8 Early satiety R68.81 Loss of appetite R63.0 Epigastric abdominal pain R10.13 Time Spent (min) 33
--- OUTSIDE RECORDS SUMMARY | 2024-10-07 08:58 | XMS_ITS | Clinical Summary ---
Author Organization [facility] Address [address] [place] [address] Care Team Providers Care Graffiti Cleaner Name Role Phone Domenico Garner MD Primary Care Provider [phone] Source Comments PLEASE NOTE, if this patient [...] Insurance HEALTH SAFETY NET SAFETY [facility] Member Subscriber Plan / Payer (Ef fective 2019-Present) Name:Mea Salgado Relation to Subscriber:Self Name:Mae Salgado Payer ID:[id number] Group ID:Not on file Type:Medicaid Address: [facility] [id number] [place] [address] Care Teams Graffiti Cleaner Relationship Specialty Start Date End Date Domenico Garner MD [address] [place] [address] PCP - General 06/16/18
--- OUTSIDE RECORDS SUMMARY | 2024-10-07 09:01 | XMS_ITS | Clinical Summary ---
Author Organization [facility] Address [address] [facility] [address] [place] [address] Phone Care Team Providers Care Hogshead Dumper Name Role Phone Pcp, Unknown Primary Care Provider Unavailabl e Allergies No known active allergies Medications No known medications Encounters Date Type Department Care Team Description 09/25/2024 11:31 PM EDT - 09/26/2024 3:30 AM EDT Emergency [facility] [address] [place] [address] Boris Bowden MD Discharge Disposition: Home or Self Care from Last 3 Months Social History Tobacco Use Types Packs/Day Years Used Date Smoking Tobacco: Never Assessed Education Answer Date Recorded Are you interested in more education? Not on tej e 09/26/2024 Are you concerned about learning? Not on file 09/26/2024 No 09/26/2024 No 09/26/2024 Food Answer Date Recorded Within the past 6 months we worried whether our food would run out before we got money to buy more. Never True 09/26/2024 Within the past 6 months the food we bought just didn't last and we didn't have enough money to get more. Never True Residential Stability Answer Date Recor ded What is your housing situation today? I have grace sing 09/26/2024 How many times have you move d in the past 12 months? Zero (I did not move) 09/26/2024 Paying for Meds Answer Date Recorded Do you have trouble paying for medicines? No 09/26/2024 Paying Utility Bills Answer Date Record ed Do you have trouble paying your heating or elect ricity bill? No 09/26/2024 Transportation Answer Date Recorded Has the lack of transportati on kept you from medical appointments or from getting medications? No 09/26/2024 Digital Access Answer Date Recorded No 09/26/2024 Yes 09/26/2024 Do you have reliable internet access at home? Ye s 09/26/2024 Do you have a device (e.g., phone, tablet, computer) with a working camera? Yes 09/26/2024 Intimate Partner Violence Answer Date R ecorded Are you denied basic needs s uch as food, clothing, or medical care? No 09/25/2024 In the past 12 months have y ou been in a relationship with a person who hurts, threatens, or tries to control you? No 09/25/2024 Are you denied basic needs s uch as food, clothing, or medical care? No 09/25/2024 In the past 12 months have y ou been in a relationship with a person who hurts, threatens, or tries to control you? No 09/25/2024 Comments Unknown Sex and Gender Information Value Date Recorded Sex Assigned at Female 09/26/2024 1:37 AM EDT Legal Sex Female 10:33 PM EDT Gender Identity Female 09/26/2024 1:37 AM EDT Sexual Orientation Choose not to disclose 2024 1:37 AM EDT Last Filed Vital Signs Vital Sign Reading Time Taken Comments Blood Pressure 106/68 09/26/2024 3:18 AM EDT Pulse 73 09/26/2024 3:18 AM EDT Temperature 36.5 C (97.7 F) 09/26/2024 3:18 AM EDT Respiratory Rate 17 09/26/2024 3:18 AM EDT Oxygen Saturation 98% 09/26/2024 3:18 AM EDT Inhaled Oxygen Concentration - - Weight 45.4 kg (100 lb) 09/25/2024 10:41 PM EDT Height 160 cm (5' 3 ) 09/25/2024 10:41 PM EDT Body Mass Index 17.71 09/25/2024 10:41 PM EDT Plan of Treatment Health Maintenance Due Date Last Done Comments DEPRESSION SCREENING 1994 SMOKING Hx and SMOKELESS TOB ACCO SCREENING 06/24/1995 HEPATITIS C SCREENING 2000 HIV ONE-TIME SCREENING (18-6 5 YEARS) 2000 PAP SMEAR 06/24/2003 MAMMOGRAM 2022 COVID-19 VACCINE (2023-2 5 season) 2023 Adult Td,Tdap Booster 10/01/2027 09/30/2017 HEPATITIS A VACCINES Aged Out No long er eligible based on patient's age to complete this topic HIB VACCINES Aged Out No longer eligi ble based on patient's age to complete this topic MENINGOCOCCAL VACCINES (ACWY) Aged Out No longer eligible based on patient's age to complete this topic MENINGOCOCCAL VACCINES (B) Aged Out N o longer eligible based on patient's age to complete this topic PNEUMOCOCCAL VACCINES (0-49 years) Aged Out No longer eligible based on patient's age to complete this topic Medical Devices Not on file Procedures Procedure Name Priority Date/Time Associated Diagnosis Comments LIPASE STAT 09/25/2024 10:59 PM EDT LFTS (HEPATIC PANEL) STAT 09/25/2024 10:59 PM EDT HCG, SERUM QUALITATIVE STAT 09/25/2024 10:59 PM EDT BASIC METABOLIC PANEL STAT 09/25/2024 10:59 PM EDT CBC AND DIFFERENTIAL STAT 09/25/2024 10:59 PM EDT ECG 12-LEAD STAT 09/25/2024 10:50 PM EDT from Last 3 Months Results * HCG, serum qualitative (09/25/2024 10:59 PM EDT) HCG, QUALITATIVE Negative Negative IU/L [facility] Blood 09/25/2024 10:5 9 PM EDT 09/25/2024 11:07 PM EDT us Sidney Bryan MD LAB BLOOD ORDERABLES Fin al Result [address] [address] * (ABNORMAL) LFTs (hepatic panel) (09/25/2024 10:59 PM EDT) Pathologist [facility] ALKALINE PHOSPHATASE 69 39 - 117 U/L [facility] TOTAL BILIRUBIN 0.3 0.0 - 1.2 mg/dL [facility] DIRECT BILIRUBIN 0.1 0.0 - 0.2 mg/dL [facility] Bilirubin (Indirect) NOT CALCULATED 0 - 1.5 mg/dL [facility] AST 14 0 - 37 U/L [facility] ALT 9 0 - 40 U/L [facility] TOTAL PROTEIN 6.8 6.5 - 8.0 g/dL [facility] ALBUMIN 3.6(L) 3.9 - 4.8 g/dL [facility] GLOBULIN 3.2 1 - 4.8 g/dL [facility] A/G Ratio 1.13 1.00 - 4.80 RATIO [facility] Blood 09/25/2024 10:5 9 PM EDT 09/25/2024 11:07 PM EDT us Sidney Bryan MD LAB BLOOD ORDERABLES Fin al Result Performing Organization Address City/State/[facility] Co de Phone Number [facility] [address] [place] [address] * (ABNORMAL) CBC and differential (09/25/2024 10:59 PM EDT) Pathologist [facility] WBC 11.74(H) 4.00 - 11.00 K/uL [facility] RBC 4.35 4.00 - 5.20 M/uL [facility] HGB 12.5 12.0 - 16.0 g/dL [facility] HCT 38.0 36.0 - 46.0 % [facility] PLT 287 150 - 450 K/uL [facility] MCV 87.4 80.0 - 100.0 fL [facility] MCH 28.7 27.0 - 31.0 pg [facility] MCHC 32.9 32.0 - 36.0 g/dL [facility] RDW 13.5 11.5 - 14.5 % [facility] MPV 10.9 8.4 - 12.0 fL [facility] NRBC 0.00 0.00 /100 WBCs [facility] ABSOLUTE NRBC 0.00 0.00 K/uL [facility] DIFF METHOD Auto [facility] NEUTS 61.7 48.0 - 76.0 % [facility] LYMPHS 27.1 18.0 - 41.0 % [facility] MONOS 7.1 4.0 - 11.0 % [facility] EOS 3.0 0.0 - 5.0 % [facility] BASOS 0.8 0.0 - 1.5 % [facility] Granulocytes, immature (%) 0.3 0.0 - 0.9 % [facility] ABSOLUTE NEUTS 7.25 1.92 - 7.60 K/uL [facility] ABSOLUTE LYMPHS 3.18 0.72 - 4.10 K/uL [facility] ABSOLUTE MONOS 0.83 0.16 - 1.10 K/uL [facility] ABSOLUTE EOS 0.35 0.00 - 0.50 K/uL [facility] ABSOLUTE BASOS 0.09 0.00 - 0.15 K/uL [facility] Granulocytes, immature 0.04 0.00 - 0.09 K/uL [facility] Blood 09/25/2024 10:5 9 PM EDT 09/25/2024 11:07 PM EDT us Sidney Bryan MD LAB BLOOD ORDERABLES Fin al Result [address] [address] * Lipase (09/25/2024 10:59 PM EDT) LIPASE 36 16 - 63 U/L [facility] Blood 09/25/2024 10:5 9 PM EDT 09/25/2024 11:07 PM EDT Sidney Bryan MD LAB BLOOD ORDERABLES Fin al Result [address] [address] * (ABNORMAL) Basic metabolic panel (09/25/2024 10:59 PM EDT) SODIUM 138 133 - 146 mmol/L [facility] CHLORIDE 104 96 - 108 mmol/L [facility] POTASSIUM 4.0 3.3 - 5.1 mmol/L [facility] CO2 25 21 - 35 mmol/L [facility] BUN 10 6 - 19 mg/dL [facility] CREATININE 0.90 0.5 - 1.5 mg/dL [facility] GLUCOSE 94 70 - 99 mg/dL [facility] CALCIUM 8.3(L) 8.4 - 10.3 mg/dL [facility] EGFR 82 >59 mL/min/1.7 3m2 [facility] Comment:Estimated glomerular filtration rate calculated using the CKD-EPI refit equation. ANION GAP 13 10 - 20 mmol/L [facility] Blood 09/25/2024 10:5 9 PM EDT 09/25/2024 11:07 PM EDT us Sidney Bryan MD LAB BLOOD ORDERABLES Fin al Result Performing Organization Address [facility] Co de Phone Number [address] [address] * ECG 12-LEAD (09/25/2024 10:50 PM EDT) Ventricular Rate EKG/MIN 57 BPM [facility] Atrial Rate 57 BPM [facility] NM Interval 140 ms [facility] QRS Duration 92 ms [facility] QT Interval 446 ms [facility] QTC Interval 434 ms [facility] P [place] -28 degrees [facility] R Wave [place] 40 degrees [facility] T Wave [place] 35 degrees [facility] 09/25/2024 10:5 0 PM EDT 09/26/2024 11:28 AM EDT Narrative [facility] - 09/26/2024 11:28 AM EDT Sinus bradycardia Incomplete right bundle branch block Borderline ECG No previous ECGs available Confirmed by Garfield Leahy ([id number]) on 09/26/2024 11:28:14 AM us Sidney Bryan MD ECG ORDERABLES Final Re sult Performing Organization Address [facility] Co de Phone Number [facility] from Last [address] [place] [address] [employer] NON NSPG PCP [employer] [place] [address] [place] NON NSPG PCP [employer] [place] [address] [place] NON NSPG PCP S[employer] [place] NON NSPG PCP [employer] [place] [address] [employer] NON NSPG PCP S[employer] [place] NON NSPG PCP [facility] [employer] Care Teams Hogshead Dumper Relationship Specialty Start Date End Date Pcp, Unknown PCP - General 09/26/24 Additional Source Comments The information contained in this document represents components of the legal health record. It is not the complete legal health record.[facility]
--- OUTSIDE RECORDS SUMMARY | 2024-10-07 09:01 | XMS_ITS | Clinical Summary ---
Author Organization [employer] [facility] Address [address] [place] [address] 7 [place] [address] Care Team Providers Care Heat Engineering Teacher Name Role Phone Unavailable Primary Care Provider Unavailabl e Allergies No known active allergies Medications No known medications Active Problems Problem Noted Date Diagnosed Date Dental plaque 09/10/2024 Staining of multiple teeth 09/10/2024 Dental calculus 01/08/2023 Localized gingival recession, minimal 01/08/2023 Encounters Date Type Department Care Team Description 09/23/2024 8:00 AM EDT Office Visit [facility] [address] [place] [address] Duarte Garcia DMD 09/10/2024 8:00 AM EDT Office Visit [facility] [address] [place] [address] Sherin Mirza Dental plaque (Primary Dx); Staining of multiple teeth; Localized gingival recession, minimal from Last 3 Months Social History Tobacco [...] Sign Reading Time Taken Comments Blood Pressure 132/80 09/23/2024 8:03 AM EDT Pulse 70 01/08/2023 8:04 AM EST Temperature - - Respiratory Rate - - Oxygen Saturation - - Inhaled Oxygen Concentration - - Weight - - Height - - Body Mass Index - - Plan of Treatment Upcoming Encounters Date Type Department Care Team (Late st Contact Info) Description 03/23/2025 8:00 AM EST Office Visit [facility] [address] [place] [address] Sherin Mirza [address] [place] [address] Health Maintenance Due Date Last Done Comments Depression Screening 1982 HIV Screening 1982 SDOH Screening 1982 Disability Screening 1982 Alcohol/Substance Use Screening 1994 Family Planning (PISQ) 1997 HPV Vaccines (1 - 3-dose series) 1997 Hepatitis C Screening 2000 Hepatitis B Vaccines (1 of 3 - 19+ 3-dose series) 2001 Pap Smear 06/24/2003 Cervical Cancer Screening 2012 HPV/Cotest 2012 Mammogram 2022 COVID-19 Vaccine ( season) 2023 07/06/2020, 06/08/2020 Influenza Vaccine (#1) 2024 Dental Oral Exam 03/14/2025 09/10/2024, 03/2022, 04/26/2021 Dental Prophylaxis 03/14/2025 09/10/2024, 1 03/10/2022, 12/28/2021, Additional history exists Dental X-Ray: Bitewings 09/11/2025 09/11/19 25, 11/02/2022, 04/26/2021 Tobacco Screening 09/23/2025 09/23/2024 Dental X-Ray: Full Mouth 09/12/2027 09/10/2024, 02/2 05/2021 DTaP/Tdap/Td Vaccines (2 - Td or Tdap) 10/01/2027 09/30/2017 Zoster Vaccines (1 [...] patient's age to complete this topic Meningococcal B Vaccine Aged Out No l onger eligible based on patient's age to complete this topic Meningococcal Vaccine Aged Out No demetrius alida eligible based on patient's age to complete this topic Pneumococcal Vaccine: Pediatrics (0 to 5 Years) and At-Risk Patients (6 to 49) Years Aged Out No longer eligible based on patient's age to complete this topic RSV under 20 months Aged Out No longe r eligible based on patient's age to complete this topic Rotavirus Vaccines Aged Out No longer eligible based on patient's age to complete this topic Procedures Procedure Name Priority Date/Time Associated Diagnosis Comments CASE PRESENTATION, DETAILED AND EXTENSIVE TREATMENT PLANNING Routine 09/23/2024 8:00 AM EDT 30 AMALGAM - 3 SURF, PRIMARY OR PERMANENT Routine 09/23/2024 8:00 AM EDT PERIODIC ORAL EVALUATION - ESTABLISHED PATIENT Routine 09/10/2024 8:00 AM EDT CASE PRESENTATION, DETAILED AND EXTENSIVE TREATMENT PLANNING Routine 09/10/2024 8:00 AM EDT Dental plaque Staining of multiple teeth Localized gingival recession, minimal ORAL HYGIENE INSTRUCTIONS Routine 09/10/2024 8:00 AM EDT Dental plaque Staining of multiple teeth Localized gingival recession, minimal INTRAORAL - COMPLETE SERIES OF RADIOGRAPHIC IMAGES Routine 09/10/2024 8:00 AM EDT Dental plaque Staining of multiple teeth Localized gingival recession, minimal PROPHYLAXIS - ADULT Routine 09/10/2024 8 :00 AM EDT Dental plaque Staining of multiple teeth from Last 3 Months Insurance DENTAL - HSN PARTIAL (MEDICAID)
== END 2024-10-07 09:33 | disposition home or self-care (01) ==
LOC: HO.HGI 08:47
PROVIDERS: Visit Provider Nurse Practitioner
DX: R76.8 Other specified abnormal immunological findings in serum (principal); R68.81 Early satiety; R63.0 Anorexia; R10.13 Epigastric pain
CPT/HCPCS: 99214

== ENCOUNTER → 2024-10-07 08:47 | Outpatient (BNVA) | payer OTHER, SELFPAY | PROVIDERS: Visit Provider Nurse Practitioner | DX: R10.13 Epigastric pain (principal); R68.81 Early satiety; R63.0 Anorexia; R76.8 Other specified abnormal immunological findings in serum | CPT/HCPCS: 99212 ==

== ENCOUNTER 2024-11-20 09:05 | Outpatient (REF) | payer OTHER, SELFPAY ==
--- NOTE | ~2024-11-20 | MM_ITS ---
EXAMINATION: MM SCREENING DIGITAL BREAST TOMOSYNTHESIS, BILATERAL CLINICAL INFORMATION: Screening. Asymptomatic. COMPARISON: Comparison made to multiple prior, most recent right diagnostic mammogram on December 09, 2023, and most remote bilateral on November 09, 2022. TECHNIQUE: Digital breast tomosynthesis is performed in mediolateral oblique and craniocaudal views along with computer-aided detection (CAD). Synthesized 2D images are generated from the tomosynthesis. FINDINGS: BREAST COMPOSITION: The breasts are heterogeneously dense, which may obscure small masses (ACR BI-RADS breast composition Category c). BILATERAL BREASTS: No significant masses, suspicious calcifications or other abnormalities are seen in either breast. MM/MM tomosynthesis screening BI IMPRESSION: BILATERAL BREASTS: Negative, no mammographic evidence of malignancy. Normal interval follow-up is recommended in 12 months. ASSESSMENT: BI-RADS 1 - Negative RECOMMENDATION: Routine annual mammography screening. FOLLOW-UP: 1 year F/U This examination should not preclude the clinical evaluation of a suspicious palpable abnormality. This patient's information was entered into a reminder system with a target due date for their next mammogram. Electronically signed by: Toby Groves MD 11/24/2024 07:29 AM EDT
--- OUTSIDE RECORDS SUMMARY | 2024-11-20 09:45 | XMS_ITS | Clinical Summary ---
Author Organization [facility] Address [address] [place] [address] Care Team Providers Care Snap Shearer Name Role Phone Domenico Garner MD Primary Care Provider [phone] Source Comments PLEASE NOTE, if this patient [...] Insurance HEALTH SAFETY NET SAFETY [facility] Member Subscriber Plan / Payer (Ef fective 2019-Present) Name:Mae Salgado Relation to Subscriber:Self Name:Mae Salgado Payer ID:[id number] Group ID:Not on file Type:Medicaid Address: [facility] [address] [place] [address] Care Teams Snap Shearer Relationship Specialty Start Date End Date Domenico Garner MD [address] [place] [address] PCP - General 06/16/18
--- OUTSIDE RECORDS SUMMARY | 2024-11-20 09:46 | XMS_ITS | Clinical Summary ---
Author Organization [facility] Address [address] [facility] [address] [place] [address] Phone Care Team Providers Care Sports Broadcasting Internship Name Role Phone Pcp, Unknown Primary Care Provider Unavailabl e Allergies No known active allergies Medications No known medications Encounters Date Type Department Care Team Description 09/25/2024 11:31 PM EDT - 09/26/2024 3:30 AM EDT Emergency [facility] [address] [place] [address] Boris Bodwen MD Discharge Disposition: Home or Self Care [...] YEARS) 2000 PAP SMEAR 06/24/2003 MAMMOGRAM 2022 INFLUENZA VACCINE (#1) 2024 COVID-19 VACCINE (2023-2 5 season) 2024 Adult Td,Tdap Booster 10/01/2027 09/30/2017 HEPATITIS A [...] PM EDT) HCG, QUALITATIVE Negative Negative IU/L [facility] Blood 09/25/2024 10:5 9 PM EDT 09/25/2024 11:07 PM EDT us Sidney Bryan MD LAB BLOOD ORDERABLES Fin al Result [facility] [address] [place] [address] * (ABNORMAL) LFTs (hepatic panel) (09/25/2024 10:59 PM EDT) ALKALINE PHOSPHATASE 69 39 - 117 U/L [facility] TOTAL BILIRUBIN 0.3 0.0 - 1.2 mg/dL [facility] DIRECT BILIRUBIN 0.1 0.0 - 0.2 mg/dL [facility] Bilirubin (Indirect) NOT CALCULATED 0 - 1.5 mg/dL [facility] AST 14 0 - 37 U/L [facility] ALT 9 0 - 40 U/L [facility] TOTAL PROTEIN 6.8 6.5 - 8.0 g/dL [facility] ALBUMIN 3.6(L) 3.9 - 4.8 g/dL [facility] GLOBULIN 3.2 1 - 4.8 g/dL [facility] A/G Ratio 1.13 1.00 - 4.80 RATIO [facility] Blood 09/25/2024 10:5 9 PM EDT 09/25/2024 11:07 PM EDT us Sidney Bryan MD LAB BLOOD ORDERABLES Fin al Result [facility] [address] [place] [address] * (ABNORMAL) CBC and differential (09/25/2024 10:59 PM EDT) Pathologist [facility] WBC 11.74(H) 4.00 - 11.00 K/uL [facility] RBC 4.35 4.00 - 5.20 M/uL [facility] HGB 12.5 12.0 - 16.0 g/dL [facility] HCT 38.0 36.0 - 46.0 % [facility] PLT 287 150 - 450 K/uL [facility] MCV 87.4 80.0 - 100.0 fL [facility] MCH 28.7 27.0 - 31.0 pg [facility] MCHC 32.9 32.0 - 36.0 g/dL [facility] RDW 13.5 11.5 - 14.5 % [facility] MPV 10.9 8.4 - 12.0 fL [facility] NRBC 0.00 0.00 /100 WBCs [facility] ABSOLUTE NRBC 0.00 0.00 K/uL [facility] DIFF METHOD Auto [facility] NEUTS 61.7 48.0 - 76.0 % [facility] LYMPHS 27.1 18.0 - 41.0 % [facility] MONOS 7.1 4.0 - 11.0 % [facility] EOS 3.0 0.0 - 5.0 % [facility] BASOS 0.8 0.0 - 1.5 % [facility] Granulocytes, immature (%) 0.3 0.0 - 0.9 % [facility] ABSOLUTE NEUTS 7.25 1.92 - 7.60 K/uL [facility] ABSOLUTE LYMPHS 3.18 0.72 - 4.10 K/uL [facility] ABSOLUTE MONOS 0.83 0.16 - 1.10 K/uL [facility] ABSOLUTE EOS 0.35 0.00 - 0.50 K/uL [facility] ABSOLUTE BASOS 0.09 0.00 - 0.15 K/uL [facility] Granulocytes, immature 0.04 0.00 - 0.09 K/uL [facility] Blood 09/25/2024 10:5 9 PM EDT 09/25/2024 11:07 PM EDT us Sidney Bryan MD LAB BLOOD ORDERABLES Fin al Result [address] [address] * Lipase (09/25/2024 10:59 PM EDT) LIPASE 36 16 - 63 U/L [facility] Blood 09/25/2024 10:5 9 PM EDT 09/25/2024 11:07 PM EDT us Sidney Bryan MD LAB BLOOD ORDERABLES Fin al Result [address] [address] * (ABNORMAL) Basic metabolic panel (09/25/2024 10:59 PM EDT) SODIUM 138 133 - 146 mmol/L [facility] CHLORIDE 104 96 - 108 mmol/L [facility] POTASSIUM 4.0 3.3 - 5.1 mmol/L [facility] CO2 25 21 - 35 mmol/L [facility] BUN 10 6 - 19 mg/dL [facility] CREATININE 0.90 0.5 - 1.5 mg/dL [facility] GLUCOSE 94 70 - 99 mg/dL [facility] CALCIUM 8.3(L) 8.4 - 10.3 mg/dL [facility] EGFR 82 >59 mL/min/1.7 3m2 [facility] Comment:Estimated glomerular filtration rate calculated using the CKD-EPI refit equation. ANION GAP 13 10 - 20 mmol/L [facility] Blood 09/25/2024 10:5 9 PM EDT 09/25/2024 11:07 PM EDT us Sidney Bryan MD LAB BLOOD ORDERABLES Fin al Result Performing Organization Address [facility] Co de Phone Number [address] [address] * ECG 12-LEAD (09/25/2024 10:50 PM EDT) Ventricular Rate EKG/MIN 57 BPM [facility] Atrial Rate 57 BPM [facility] [place] Interval 140 ms [facility] QRS Duration 92 ms [facility] QT Interval 446 ms [facility] QTC Interval 434 ms [facility] P [place] -28 degrees [facility] R Wave [place] 40 degrees [facility] T Wave [place] 35 degrees [facility] 09/25/2024 10:5 0 PM EDT 09/26/2024 11:28 AM EDT Narrative [facility] - 09/26/2024 11:28 AM EDT Sinus bradycardia Incomplete right bundle branch block Borderline ECG No previous ECGs available Confirmed by Garfield Leahy ([id number]) on 09/26/2024 11:28:14 AM us Sidney Bryan MD ECG ORDERABLES Final Re sult Performing Organization Address City/[facility]/ZIP Co de Phone Number [facility] from Last 3 Months Insurance [address] [place] [address] [employer]ENSE NON NSPG PCP [employer] [place] [address] [place] NON NSPG PCP S[employer] CL[employer]ITY CONNECTORCARE [place] NON NSPG PCP S[employer] CL[employer]ITY CONNECTORCARE WELLSENSE NON NSPG PCP SILVER CLARITY CONNECTORCARE WELLSENSE NON NSPG PCP SILVER CL[employer]ITY CONNECTORCARE WELLSENSE NON NSPG PCP [place] [address] Care Teams Sports Broadcasting Internship Relationship Specialty Start Date End Date Pcp, Unknown PCP - General 09/26/24 Additional Source Comments The information contained in this document represents components of the legal health record. It is not the complete legal health record.[facility]
--- OUTSIDE RECORDS SUMMARY | 2024-11-20 09:46 | XMS_ITS | Clinical Summary ---
Author Organization [facility] [facility] Address [address] [place] [address] [address] [place] [address] Care Team Providers Care Privacy Specialist Name Role Phone Unavailable Primary Care Provider Unavailabl e Allergies No known active allergies Medications No known medications Active Problems Problem Noted Date Diagnosed Date Dental plaque 09/10/2024 Staining of multiple teeth 09/10/2024 Dental calculus 01/08/2023 Localized gingival recession, minimal 01/08/2023 Encounters Date Type Department Care Team Description 09/23/2024 8:00 AM EDT Office Visit [facility] [address] [place] [address] Duarte Garcia DMD 09/10/2024 8:00 AM EDT Office Visit [facility] [address] [place] [address] Sherin Mirza Dental plaque (Primary Dx); Staining [...] Description 03/23/2025 8:00 AM EST Office Visit [facility] [address] [place] [address] Sherin Mirza [address] [place] [address] Health Maintenance Due Date Last Done Comments [...] 2012 Mammogram 2022 COVID-19 Vaccine ( season) 2024 07/06/2020, 06/08/2020 Influenza Vaccine (#1) 2024 Dental [...]
--- OUTSIDE RECORDS SUMMARY | 2024-11-20 09:46 | XMS_ITS | Encounter Summary ---
Author Organization [facility] [facility] Address [address] [place] [address] [address] [place] [address] Care Team Providers Care Milking Machine Mechanic Name Role Phone Unavailable Primary Care Provider Unavailabl e Encounter Details Date Type Department Care Team (Latest Contact Info) Description 05/12/2021 Abstract [facility] CONVERSIONS Dental, Provider, DDS Social History [...] as of this encounter Plan of Treatment Upcoming Encounters Date Type Department Care Team (Late st Contact Info) Description 03/23/2025 8:00 AM EST Office Visit [facility] ADULT DENTAL [address] [place] [address] Anthony Mirzaaris [address] [place] [address] documented as of this encounter Visit Diagnoses Not on filedocumented in this encounter
== END 2024-11-20 09:06 | disposition home or self-care (01) ==
LOC: HO.MAMMO 09:05
PROVIDERS: PCP Physician Assistant; Visit Provider Internal Medicine
DX: Z12.31 Encounter for screening mammogram for malignant neoplasm of breast (principal)
CPT/HCPCS: 77063; 77067

== ENCOUNTER → 2024-11-20 09:15 | Outpatient (BNV) | payer OTHER, SELFPAY | PROVIDERS: PCP Physician Assistant; Visit Provider Radiology Body Imaging | DX: Z12.31 Encounter for screening mammogram for malignant neoplasm of breast (principal) | CPT/HCPCS: 77063; 77067 ==

== ENCOUNTER 2024-11-26 08:23 | Outpatient (REF) | payer OTHER, SELFPAY | END 2024-11-26 08:24 | disposition home or self-care (01) | LOC: HO.LNP 08:23 | PROVIDERS: Nurse Practitioner Family; PCP Physician Assistant; Visit Provider Nurse Practitioner | DX: R76.8 Other specified abnormal immunological findings in serum (principal) | CPT/HCPCS: 83013; 99211 ==

== ENCOUNTER 2024-11-26 08:23 | Outpatient (AMB) | payer OTHER, SELFPAY ==
--- OUTSIDE RECORDS SUMMARY | 2013-10-07 04:00 | XMS_ITS | Continuity of Care Document ---
Author Organization [facility] Address [address] [place] [id number] Phone Care Team Providers Care Aviation Electronics Technician Name Role Phone Unavailable Unavailable Unavailable Allergies, Adverse Reactions, Alerts Substance Reaction Status Criticality No Known Drug Allergies Active No I nformation Procedures Procedure Date Preven Meds E&m Estab Pt; 18-3 14 Glu; Crow Routine Venipuncture Results Test Name Date and Time Measure Units Reference Range Abnormal Flag Status Commen ts Panel Description: Glucose Final Glucose 09:17:00 100.00 mg/dL 70.00-110.00 Final Advance Directives Directive Yes / No Effective Date File Name No Information Encounters Encounter Description Practice Location Reason(s) For Visit Diagnoses Date Provider Preven Meds E&m Estab Pt; 18-[address], [id number], tel:[phone] [facility] preventive exam (chief complaint) Routine Medical ExamRoutine Medical ExamSCREEN-DIABETES MELLITUS 4 No Information [facility] , [address] [place] [address], [id number], [place] tel:[phone] [facility] vaginal bleeding (chief complaint) NONINFLAM DIS VAGINA NEC 4 Verenice Israel. [address] [place] [address], [id number], [place]. tel:[phone], [id number], [place] tel:[phone] [facility] contraceptive management (chief complaint)vagi nal discharge (chief complaint) CONTRACEPTIVE MANGMT NECVaginitis 4 No Information [address], [id number], tel:[phone] [facility] contraceptive management (chief complaint) CONTRACEPTIVE MANGMT NOSSKIN ANOMALY NEC 4 No Information [address], [id number], tel:[phone] [facility] abnormal menstruation (chief complaint) TEST-POSITIVE 3 Verenice Israel. [address] [place] [address], [facility], . tel:[phone], [id number], tel:[phone] [facility] test result (chief complaint) ADMINISTRTVE ENCOUNT NEC 3 No Information [address], [id number], tel:[phone] [facility] amenorrhea (chief complaint) ABSENCE OF MENSTRUATION 3 Indio Walton. [address] [place] [address], [facility], [place]. tel:[phone], [address] [place] [address], tel:[phone] [facility] suture removal (chief complaint) OPEN WOUND OF HANDBATTER BY SPOUSE/PARTNER 3 Verenice Israel. [address] [place] [address], [id number], [place]. tel:[phone], [address] [place] [address], tel:[phone] [facility] preventive exam (chief complaint) Routine Medical ExamVaginitisGynecolog ical ExaminationFatigue / MalaiseVACCINATION FOR DTP-DTAPSCREEN FOR VENERAL DISRoutine Medical Exam 3 No Information [facility] , [address] [place] [address], [id number], tel:[phone] [facility] urinary symptoms (acute) (chief complaint) DYSURIAInfluenza Vaccine 3 Jt Ashton. [address], [place], [address], [place]. tel:[phone] [facility] , [address] [place] [address], [id number], tel:[phone] [facility] establish care (chief complaint)cont raceptive management (chief complaint) CONTRACEPTIVE MANGMT NOS No Information Family History Family Member Type Diagnosis Age At Onset Problem (finding) Mother Problem (finding) arthritis Father Problem (finding) diabetes melli tus in first degree relative Mother Problem (finding) prolapsed heart valve ? Mother Problem (finding) hypertension Immunizations Vaccine Date Status Comments Tdap (Adacel r) administered Note: Pt ayla erated well. vd ; Source: New Immunization Record Influenza (split) (3 yrs or older) administered Source: New Immuniza tion Record Payers Payer name Insurance type Covered libertarian ID Authoriza tion(s) No Information Social History Type Description Quantity Date Captured Comments Alcohol Use Details No Caffeine Use Details coffee 1 cup per day Tobacco Use Status No Information Smoking Status Never smoker Sex Female Sexual Orientation Choose not to disclose Gender Identity Choose not to disclose 019 Vital Signs Date / Time: Height Weight BMI Pulse Rate Blood Pressure Temperature Respiratory Rate Body Surface Area Head Circumference Head Circ. Percentile Wt./Amari. Percentile BMI percentile Pulse Ox Inhaled Ox 8:07 AM 60.50 in 103.00 lbs 19.7 8 kg/m eter (2) 76 /min 102/60 mm[Hg] 14 /min Chief Complaint And Reason For Visit From encounter dated '10/07/2013 08:00'. preventive exam (chief complaint) Plan Of Treatment Date Type Action Status Goal H&P. Due on due Goal Breast exam. Due on 014 due Future Order: Lab Order Urine cu lture ([id number]), Appointment on: , Sent on: Sent History Of Present Illness Encounter Date Complaint History Of Prese nt Illness No Information Instructions Date Instruction Additional Infor mation No Information Assessments Type Assessment Date No Information Mental Status Date Cognitive Assessment Orientation - [place] ed to time, place, person, situation.
--- NOTE | 2024-11-26 08:40 | AM.OFFVISNUR ---
Intake Visit Reasons: H pylori breath test Intake Note: Patient presents for collection of?H Pylori?breath test. Patient has been fasting for 1 hour (nothing to eat, drink, no chewing gum or smoking) has not taken any antacid medication for at least 2 weeks and has no allergies to artificial sweeteners.?? Allergies No Known Allergies Allergy (Verified 10/07/24 08:57) Assessment & Plan Assessment & Plan (1) Helicobacter pylori antibody positive: Code(s): R76.8 - Other specified abnormal immunological findings in serum Category: Medical Plan Patient presents for collection of?H Pylori?breath test. Patient has been fasting for 1 hour (nothing to eat, drink, no chewing gum or smoking) has not taken any antacid medication for at least 2 weeks and has no allergies to artificial sweeteners.???This test checks for an overgrowth of bacteria in your stomach. We all have bacteria but some may have more than others. It is treatable. if the test comes back negative there is nothing else to do. If the test result is positive we will treat you with 2 antibiotics and a medication to decrease the acid in your stomach (PPI) for 2 weeks. Two weeks after you have completed the treatment we will retest you to make sure the overgrowth has resolved. Patient Instructions: Process for specimen collection and reason for testing was explained to the patient. Specimen collection. Patient instructed to take a deep breath and then exhale into the blue bag, filling it up as much as possible. Patient instructed to drink a mixture of water and the artificial sweetener with a straw. A 15 minute wait period was observed. Patient instructed to take a deep breath and then exhale into the pink bag, filling it up as much as possible.?? Coding Level of Care Code Established Pt Est Pt Level 1 (94934) Patient Type Established Medical Decision Making Straight Forward Diagnoses Helicobacter pylori antibody positive R76.8
--- OUTSIDE RECORDS SUMMARY | 2024-11-26 08:56 | XMS_ITS | Clinical Summary ---
Author Organization [facility] Address [address] [place] [address] Care Team Providers Care Fleet Dispatch Manager Name Role Phone Domenico Garner MD [...] HEALTH SAFETY NET SAFETY [facility] HEALTH PLAN Member Subscriber Plan / Payer (Ef fective 2019-Present) Name:Mae Salgado Relation to Subscriber:Self Name:Mae Salgado Payer ID:[id number] Group ID:Not on file Type:Medicaid Address: [facility] [address] [place] [address] Care Teams Fleet Dispatch Manager Relationship Specialty Start Date End Date Domenico Garner MD [address] [place] [address] PCP - General 06/16/18
--- OUTSIDE RECORDS SUMMARY | 2024-11-26 08:56 | XMS_ITS | Encounter Summary ---
Author Organization [facility] Address [address] [place] [address] 7 [place] [address] Care Team Providers Care Medical Asst Name Role Phone Unavailable Primary Care Provider [...] Description 03/23/2025 8:00 AM EST Office Visit [facility] [address] [place] [address] Anthony Mirzaaris [address] [place] [address] documented as of this encounter Visit Diagnoses Not on filedocumented in this encounter
--- OUTSIDE RECORDS SUMMARY | 2024-11-26 08:56 | XMS_ITS | Clinical Summary ---
Author Organization [facility] Address [address] [place] [phone] Phone Care Team Providers Care Cardiovascular Disease Specialist Name Role Phone Pcp, Unknown Primary Care Provider Unavailabl e Allergies No known active allergies Medications No known medications Encounters Date Type Department Care Team Description 09/25/2024 11:31 PM EDT - 09/26/2024 3:30 AM EDT Emergency [facility] Emergency [address] [place] [address] Boris Bowden MD Discharge Disposition: Home or [...] PM EDT) HCG, QUALITATIVE Negative Negative IU/L [facility] Blood 09/25/2024 10:5 9 PM EDT 09/25/2024 11:07 PM EDT us Sidney Bryan MD LAB BLOOD ORDERABLES Fin al Result [facility] [address] [place] [address] * (ABNORMAL) LFTs (hepatic panel) (09/25/2024 10:59 PM EDT) ALKALINE PHOSPHATASE 69 39 - 117 U/L [facility] TOTAL BILIRUBIN 0.3 0.0 - 1.2 mg/dL [facility] DIRECT BILIRUBIN 0.1 0.0 - 0.2 mg/dL [facility] Bilirubin (Indirect) NOT CALCULATED 0 - 1.5 mg/dL [facility] AST 14 0 - 37 U/L [facility] ALT 9 0 - 40 U/L [facility] TOTAL PROTEIN 6.8 6.5 - 8.0 g/dL [facility] ALBUMIN 3.6(L) 3.9 - 4.8 g/dL [facility] GLOBULIN 3.2 1 - 4.8 g/dL [facility] A/G Ratio 1.13 1.00 - 4.80 RATIO [facility] Blood 09/25/2024 10:5 9 PM EDT 09/25/2024 11:07 PM EDT us Sidney Bryan MD LAB BLOOD ORDERABLES Fin al Result [facility] [address] [place] [address] * (ABNORMAL) CBC and differential (09/25/2024 10:59 PM EDT) Pathologist [facility] WBC 11.74(H) 4.00 - 11.00 K/uL [facility] RBC 4.35 4.00 - 5.20 M/uL [facility] HGB 12.5 12.0 - 16.0 g/dL [facility] HCT 38.0 36.0 - 46.0 % [facility] PLT 287 150 - 450 K/uL [facility] MCV 87.4 80.0 - 100.0 fL [facility] MCH 28.7 27.0 - 31.0 pg [facility] MCHC 32.9 32.0 - 36.0 g/dL [facility] RDW 13.5 11.5 - 14.5 % [facility] MPV 10.9 8.4 - 12.0 fL [facility] NRBC 0.00 0.00 /100 WBCs [facility] ABSOLUTE NRBC 0.00 0.00 K/uL [facility] DIFF METHOD Auto [facility] NEUTS 61.7 48.0 - 76.0 % [facility] LYMPHS 27.1 18.0 - 41.0 % [facility] MONOS 7.1 4.0 - 11.0 % [facility] EOS 3.0 0.0 - 5.0 % [facility] BASOS 0.8 0.0 - 1.5 % [facility] Granulocytes, immature (%) 0.3 0.0 - 0.9 % [facility] ABSOLUTE NEUTS 7.25 1.92 - 7.60 K/uL [facility] ABSOLUTE LYMPHS 3.18 0.72 - 4.10 K/uL [facility] ABSOLUTE MONOS 0.83 0.16 - 1.10 K/uL [facility] ABSOLUTE EOS 0.35 0.00 - 0.50 K/uL [facility] ABSOLUTE BASOS 0.09 0.00 - 0.15 K/uL [facility] Granulocytes, immature 0.04 0.00 - 0.09 K/uL [facility] Blood 09/25/2024 10:5 9 PM EDT 09/25/2024 11:07 PM EDT us Sidney Bryan MD LAB BLOOD ORDERABLES Fin al Result [address] [address] * Lipase (09/25/2024 10:59 PM EDT) LIPASE 36 16 - 63 U/L [facility] Blood 09/25/2024 10:5 9 PM EDT 09/25/2024 11:07 PM EDT us Sidney Bryan MD LAB BLOOD ORDERABLES Fin al Result [address] [address] * (ABNORMAL) Basic metabolic panel (09/25/2024 10:59 PM EDT) SODIUM 138 133 - 146 mmol/L [facility] CHLORIDE 104 96 - 108 mmol/L [facility] POTASSIUM 4.0 3.3 - 5.1 mmol/L [facility] CO2 25 21 - 35 mmol/L [facility] BUN 10 6 - 19 mg/dL [facility] CREATININE 0.90 0.5 - 1.5 mg/dL [facility] GLUCOSE 94 70 - 99 mg/dL [facility] CALCIUM 8.3(L) 8.4 - 10.3 mg/dL [facility] EGFR 82 >59 mL/min/1.7 3m2 [facility] Comment:Estimated glomerular filtration rate calculated using the CKD-EPI refit equation. ANION GAP 13 10 - 20 mmol/L [facility] Blood 09/25/2024 10:5 9 PM EDT 09/25/2024 11:07 PM EDT us Sidney Bryan MD LAB BLOOD ORDERABLES Fin al Result Performing Organization Address [facility] Co de Phone Number [address] [address] * ECG 12-LEAD (09/25/2024 10:50 PM EDT) Ventricular Rate EKG/MIN 57 BPM [facility] Atrial Rate 57 BPM [facility] MS Interval 140 ms [facility] QRS Duration 92 ms [facility] QT Interval 446 ms [facility] QTC Interval 434 ms [facility] P [place] -28 degrees [facility] R Wave [place] 40 degrees [facility] T Wave [place] 35 degrees [facility] 09/25/2024 10:5 0 PM EDT 09/26/2024 11:28 AM EDT Narrative [facility] - 09/26/2024 11:28 AM EDT Sinus bradycardia Incomplete right bundle branch block Borderline ECG No previous ECGs available Confirmed by Garfield Leahy ([id number]) on 09/26/2024 11:28:14 AM us Sidney Bryan MD ECG ORDERABLES Final Re sult Performing Organization Address City/[facility]/ZIP Co de Phone Number [facility] from Last 3 Months Insurance [address] [place] [address] [employer] NON NSPG PCP [employer] [place] [address] [employer] NON [place] PCP S[employer] [place] NON NSPG PCP S[employer] NON NSPG PCP [employer] NON NSPG PCP S[employer] NON NSPG PCP [employer] Care Teams Cardiovascular Disease Specialist Relationship Specialty Start Date End Date Pcp, Unknown PCP - General 09/26/24 Additional Source Comments The information contained in this document represents components of the legal health record. It is not the complete legal health record.[facility]
--- OUTSIDE RECORDS SUMMARY | 2024-11-26 08:56 | XMS_ITS | Clinical Summary ---
Author Organization [employer] [facility] Address [address] [place] [address] 7 [place] [address] Care Team Providers Care Assistant Department Manager Name Role Phone Unavailable Primary Care Provider Unavailabl e Allergies No known active allergies Medications No known medications Active Problems Problem Noted Date Diagnosed Date Dental plaque 09/10/2024 Staining of multiple teeth 09/10/2024 Dental calculus 01/08/2023 Localized gingival recession, minimal 01/08/2023 Encounters Date Type Department Care Team Description 09/23/2024 8:00 AM EDT Office Visit [facility]ULT [facility] [address] [place] [address] Duarte Garcia DMD 09/10/2024 8:00 AM EDT Office Visit [facility] [address] [place] [address] Sherin Mirza Dental plaque (Primary Dx); Staining [...] Description 03/23/2025 8:00 AM EST Office Visit [facility] [address] [place] [address] Sherin Mirza [address] [place] [address] Health Maintenance Due Date Last Done Comments [...]
== END 2024-11-26 08:41 | disposition home or self-care (01) ==
LOC: HO.HGI 08:24
PROVIDERS: PCP Physician Assistant; Visit Provider Nurse Practitioner
DX: R76.8 Other specified abnormal immunological findings in serum (principal)

== ENCOUNTER 2024-12-28 09:20 | Outpatient (AMB) | payer OTHER, SELFPAY ==
--- OUTSIDE RECORDS SUMMARY | 2013-10-07 04:00 | XMS_ITS | Continuity of Care Document ---
Author Organization [facility] Address [address] [place] [phone] Phone Care Team Providers Care Police Cadet Name Role Phone Unavailable Unavailable Unavailable Allergies, [...] Provider Preven Meds E&m Estab Pt; 18-[address], [id number], tel:[phone] [facility] preventive exam (chief complaint) Routine Medical ExamRoutine Medical ExamSCREEN-DIABETES MELLITUS [address] [facility] , [address] [place] [address], [id number], [place] tel:[phone] [facility] vaginal bleeding (chief complaint) NONINFLAM DIS VAGINA NEC 4 Verenice Israel. [address] [place] [address], [address], [place]. tel:[phone], [id number], [place] tel:[phone] [facility] contraceptive management (chief complaint)vagi nal discharge (chief complaint) CONTRACEPTIVE MANGMT NECVaginitis 4 No Information [address], [id number], tel:[phone] [facility] contraceptive management (chief complaint) CONTRACEPTIVE MANGMT NOSSKIN ANOMALY NEC 4 No Information [address], [id number], tel:[phone] [facility] abnormal menstruation (chief complaint) TEST-POSITIVE 3 Verenice Israel. [address] [place] [address], [facility], . tel:[phone], [id number], tel:[phone] [facility] test result (chief complaint) ADMINISTRTVE ENCOUNT NEC 3 No Information [address], [id number], tel:[phone] [facility] amenorrhea (chief complaint) ABSENCE OF MENSTRUATION 3 Indio Walton. [address] [place] [address], [facility], [place]. tel:[phone], [address] [place] [address], tel:[phone] [facility] suture removal (chief complaint) OPEN WOUND OF HANDBATTER BY SPOUSE/PARTNER 3 Verenice Israel. [address] [place] [address], [id number], [place]. tel:[phone], [address] [place] [address], tel:[phone] [facility] preventive exam (chief complaint) Routine Medical ExamVaginitisGynecolog ical ExaminationFatigue / MalaiseVACCINATION FOR DTP-DTAPSCREEN FOR VENERAL DISRoutine Medical Exam [address] [facility] , [address] [place] [address], [id number], tel:[phone] [facility] urinary symptoms (acute) (chief complaint) DYSURIAInfluenza Vaccine 3 Jt Ashton. [address], [place], [address], [place]. tel:[phone] [facility] , [address] [place] [address], [id number], tel:[phone] [facility] establish care (chief complaint)cont raceptive management (chief [...] Record Payers Payer name Insurance type Covered green party ID Authoriza tion(s) No Information Social History [...] Future Order: Lab Order Urine cu lture ([id number]), Appointment on: , Sent on: Sent History Of Present Illness Encounter Date Complaint History Of Prese nt Illness No Information Instructions Date Instruction Additional Infor mation No Information Assessments Type Assessment Date No Information Mental Status Date Cognitive Assessment Orientation - [place] ed to time, place, person, situation.
--- NOTE | 2024-12-28 09:22 | MHC.OFFVIS ---
Vital Signs 12/28/24 09:35 Height 5 ft Weight 107 lb BMI 20.9 BP 106/66 Intake Visit Reasons: STEWARD RACETRACK annual exam Riprap Placer: Riprap Placer Present (Brittnee) Accompanied by: Self / Same As Patient Allergies No Known Allergies Allergy (Verified 12/28/24 09:24) Medication List - Last Reconciled 12/28/24 by Mally Buchanan CNM norelgestromin-ethin.estradiol 150-35 mcg/24 hr (Xulane) 1 patch transdermal Q7D triamcinolone acetonide 0.025% 1 appl topical BID Is last menstrual period known: Yes Last menstrual period: 12/28/24 Post menopausal: No Patient : No HPI HPI STEWARD RACETRACK annual exam: Details: 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 The only issue she is having this year is that for quite a while she has been noticing that her control patches have not been reliably sticking the way they are supposed to she has been using this method for years and years and she does not remember exactly when this problem started. She is very careful not to use any kind of lotion on her skin or hands before applying the patches and she has been doing it the same way for years and sometimes they stick and sometimes they just come off and sometimes they just curled around the edges and sometimes they just come right often the shower. When they do she takes it off completely and goes to the next 1 and when she runs out of patches which happens often in this scenario she either does not have sex until she is able to refill the patches or she goes to [facility] and gets emergency contraception. Her health is good otherwise she is up-to-date on her mammograms her last Pap smear was negative in 2022 and it was also negative in 2021 and she does not need any testing today and she has no itching or burning or worries about infection. [facility] Medical History (Updated 12/28/24 @ 10:00 by Mally Buchanan CNM) Well woman exam with routine gynecological exam Cervical cancer screening control counseling Annual physical exam Screen for sexually transmitted diseases Colon cancer screening Heart burn Helicobacter pylori antibody positive Asteatotic eczema Low back pain Chronic fatigue Surgical History History of section, low transverse S/P No history of previous surgery Family History Mother Diabetes High cholesterol Hypertension Stroke Father Arthritis Son No problems noted. Sister No problems noted. Maternal Grandfather Colon cancer Social History Housing: Apartment Alcohol intake: never Patient Tobacco Use Status: Never used Tobacco e-Cigarette/Vaping Use: Never Used Second Hand Smoke Exposure: No service: No Current occupational status: employed Cognitive needs: No Hearing needs: No Vision needs: No Female Reproductive History Menstrual Age of Menarche: 14 Date of last menstrual period: 12/28/24 control method: patch Total pregnancies: 1 Full term: 1 Date of last pap smear: 10/25/22 (negative pap smear, negative hpv ) Date of Mammogram: 11/20/24 (bi rad 1) Physical Exam Vital Signs: Last Vital Signs BP 106/66 12/28/24 09:35 BMI result Body Mass Index 20.9 Const General: healthy appearing, comfortable, no acute distress, well developed and alert Nutritional Appearance: average body habitus Orientation/consciousness: patient oriented x3 Limitations: no limitations HEENT Head: Yes normocephalic Neck Neck: Yes normal visual inspection Thyroid: Thyroid normal Chest Chest palpation & inspection: normal inspection of the chest Breast/axilla inspection: normal inspection of the breasts and normal inspection of the axillae Breast/axilla palpation: normal palpation of the breasts and normal palpation of the axillae Resp Effort & Inspection: normal respiratory effort GI Inspection: Yes normal to inspection, No Abdominal wall edema and No distended Palpation (GI): Soft to palpation and nontender External Female Exam: normal external appearance and normal appearance of the urethra Speculum Exam - Vagina: normal palpation Bimanual exam- vagina & uterus: normal palpation Neuro General: patient oriented x3 Results Reviewed Results Reviewed: Patient: Mae Salgado MR#: [id number] : 1980 Acct:[id number] Age/Sex: 44 / F ADM Date: 11/20/24 Loc: HO.MAMMO Attending Dr: Vikash West MD Ordering Physician: Ivone Caba Results: 1Negative Date of Service: 11/20/24 Follow Up: 1 Year From Original Mammogram Procedure(s): MM tomosynthesis screening BI Accession Number(s): [id number] cc: Ivone Caba~ Reason For Exam: SCREENING EXAMINATION: MM SCREENING DIGITAL BREAST TOMOSYNTHESIS, BILATERAL CLINICAL INFORMATION: Screening. Asymptomatic. COMPARISON: Comparison made to multiple prior, most recent right diagnostic mammogram on December 09, 2023, and most remote bilateral on November 09, 2022. TECHNIQUE: Digital breast tomosynthesis is performed in mediolateral oblique and craniocaudal views along with computer-aided detection (CAD). Synthesized 2D images are generated from the tomosynthesis. FINDINGS: BREAST COMPOSITION: The breasts are heterogeneously dense, which may obscure small masses (ACR BI-RADS breast composition Category c). BILATERAL BREASTS: No significant masses, suspicious calcifications or other abnormalities are seen in either breast. MM/MM tomosynthesis screening BI IMPRESSION: BILATERAL BREASTS: Negative, no mammographic evidence of malignancy. Normal interval follow-up is recommended in 12 months. ASSESSMENT: BI-RADS 1 - Negative RECOMMENDATION: Routine annual mammography screening. FOLLOW-UP: 1 year F/U This examination should not preclude the clinical evaluation of a suspicious palpable abnormality. This patient's information was entered into a reminder system with a target due date for their next mammogram. Electronically signed by: Toby Groves MD 11/24/2024 07:29 AM EDT Dictated By: Toby Groves MD Signed By: <Electronically signed by Toby Groves MD in OV> 11/24/24 0729 DD/ 7 TD/TT: 11/20/24929 Shellfish Sorter: Name: Mae Salgado Age/Sex: 42/F Attending: Mally Buchanan CNM : 1980 Submitted by: Mally Buchanan CNM Copies to: MR #: [id number] Status: DEP REF Collected: 10/25/22 Location: [facility] Received: 10/26/22 Interpretation Satisfactory for evaluation. Negative for intraepithelial lesion or malignancy. Mild inflammation. HPV mRNA E6/E7: NOT DETECTED This assay detects E6/E7 viral messenger RNA (mRNA) from 14 high-risk HPV types (16, 18, 31, 33, 35, 39, 45, 51, 52, 56, 58, 59, 66, 68) HPV testing performed by [facility], [place], [place]. See reference laboratory portion of the EMR for entire report. Clinical Information LMP: Unknown date Previous PAP test: 10/20/21, WNL Material Received ThinPrep-Cervical Electronically Signed By: Hannah Proctor 11/10/22 1411 The Pap Test is a screening procedure with the inherent possibility of both false negative and false positive results. Results should be interpreted in the context of historic and current clinical findings. Reliability of the Pap Test is enhanced by performing the test on a regular repetitive basis. Patient: Mae Salgado Age/Sex: 42/F MR#: [id number] Page 1 of 1 Assessment & Plan Assessment & Plan (1) Uses hormonal contraceptive patch as primary control method: Comment: Long-term patch choose her cites correct use however recently patches have not been sticking as they are supposed to,,,,,. NOTES SENT TO PHARMACY ABOUT THIS ON THE PRESCRIPTION. Code(s): Z78.9 - Other specified health status Category: Social Hx (2) control counseling: Code(s): Z30.09 - Encounter for other general counseling and advice on contraception Category: Medical (3) Cervical cancer screening: Comment: 10/19/2021 Pap is negative with negative HPV. 10/25/2022 Pap done secondary to history of infrequent screening= neg w neg hpv. Code(s): Z12.4 - Encounter for screening for malignant neoplasm of cervix Category: Medical (4) Well woman exam with routine gynecological exam: Comment: Speculum exam deferred today as no need. Code(s): Z01.419 - Encounter for gynecological examination (general) (routine) without abnormal findings Category: Medical Plan -----Discussed in this visit the following: healthy balanced diet, regular and consistent exercise, getting recommended health screens, doing the best she can for her particular health concerns, kegel exercises, pap smear screening and followup recommendations, mammography screening and SBE, normal changes in cycles in her life stage--- .I reviewed her patch using detail she is very reliably describing how she places them and she does not use any kind of moisture lotion and never has before placement and her hands are clean and they are just failing to stick as promised. She says sometimes they stick a little bit but more often they just stick in the center and the edges come undone. Note placed on prescription to the pharmacy in hopes that they will investigate there supplier for quality control microbiology supervisor. She is up-to-date on her Paps she is up-to-date on mammograms she has no concern or worries about itching or discharge or anything and so internal pelvic exam was deferred today . She is aware of protection from unsafe sex and when she is not protected by the patch she either does not have sex or she seeks emergency contraception so she is doing her best to be safe she is a nonsmoker, and she is non sedentary in her life. Medications: Refilled norelgestromin-ethin.estradiol 150-35 mcg/24 hr (Xulane) apply once weekly for 3 weeks of a 4-week cycle 1 patch transdermal Q7D 9 ea 4RF norelgestromin-ethin.estradiol 150-35 mcg/24 hr (Xulane) apply once weekly for 3 weeks of a 4-week cycle 1 patch transdermal Q7D 9 ea 4RF Coding Level of Care Code Est Pt Prev Care 40-64y(74342) Diagnoses Uses hormonal contraceptive patch as primary control method Z78.9 control counseling Z30.09 Cervical cancer screening Z12.4 Well woman exam with routine gynecological exam Z01.419
[2024-12-28 09:35] VITALS: BP 106/66; BMI 20.9
--- OUTSIDE RECORDS SUMMARY | 2024-12-28 10:20 | XMS_ITS | Encounter Summary ---
Author Organization [facility] Address [address] [place] [address] 7 [place] [address] Care Team Providers Care Living Skills Advisor Name Role Phone Unavailable Primary Care Provider [...] [facility] [address] [place] [address] Anthony Mirzaaris [address] [place] [address] documented as of this encounter Visit Diagnoses Not on filedocumented in this encounter
--- OUTSIDE RECORDS SUMMARY | 2024-12-28 10:20 | XMS_ITS | Clinical Summary ---
Author Organization [facility] Address [address] [place] [address] 7 [place] [address] Care Team Providers Care Behavioral Health Counselor Name Role Phone Unavailable Primary Care Provider [...] 03/23/2025 8:00 AM EST Office Visit [facility] [address] [place] [address] Yuki, Sherin [address] [place] [address] Health Maintenance Due Date Last Done Comments [...] 09/23/2024 Dental X-Ray: Full Mouth 09/12/2027 09/10/2024, 04/05 DTaP/Tdap/Td Vaccines (2 - Td or Tdap) [...] EDT Dental plaque Staining of multiple teeth INTRAORAL - COMPLETE SERIES OF RADIOGRAPHIC IMAGES Routine 09/10/2024 8:00 AM EDT Dental plaque Staining of multiple teeth Localized gingival recession, minimal PERIODIC ORAL EVALUATION - ESTABLISHED PATIENT Routine 09/10/2024 8:00 AM EDT from Last 3 Months or Most Recently Relevant to Health Maintenance Insurance DENTAL - [facility]SN PARTIAL (MEDICAID)
--- OUTSIDE RECORDS SUMMARY | 2024-12-28 10:20 | XMS_ITS | Clinical Summary ---
Author Organization [facility] Address [address] [address] Phone Care Team Providers Care Line Driver Name Role Phone Pcp, Unknown Primary Care Provider Unavailabl e Allergies No known active allergies Medications No known medications Social History Tobacco Use Types Packs/Day Years [...] 2022 INFLUENZA VACCINE (#1) 2024 COVID-19 VACCINE (1 - 2024-2 6 season) 2024 Adult Td,Tdap Booster 10/01/2027 09/30/2017 [...] this topic Medical Devices [place] [id number] [facility] NON NSPG PCP [employer] [place] [id number] [facility] NON NSPG PCP [employer] [place] [id number] [facility] NON NSPG PCP [employer] NON NSPG PCP [employer] NON NSPG PCP S[employer] NON NSPG PCP [employer] Care Teams Line Driver Relationship Specialty Start Date End Date Pcp, Unknown PCP - General 09/26/24 Additional Source Comments The information contained in this document represents components of the legal health record. It is not the complete legal health record.[facility]
== END 2024-12-28 10:19 | disposition home or self-care (01) ==
LOC: HO.HWS 09:21
PROVIDERS: PCP Internal Medicine; Visit Provider Advanced Practice Midwife
DX: Z01.419 Encounter for gynecological examination (general) (routine) without abnormal findings (principal); Z78.9 Other specified health status; Z30.09 Encounter for other general counseling and advice on contraception
CPT/HCPCS: 99396; 99459

== ENCOUNTER → 2024-12-28 09:20 | Outpatient (BNVA) | payer OTHER, SELFPAY | PROVIDERS: PCP Internal Medicine; Visit Provider Advanced Practice Midwife | DX: Z01.419 Encounter for gynecological examination (general) (routine) without abnormal findings (principal); Z30.09 Encounter for other general counseling and advice on contraception; Z78.9 Other specified health status | CPT/HCPCS: 99396 ==